=== PATIENT | female | born 1990 | race Caucasian/White ===

== ENCOUNTER 2017-08-18 23:51 | Emergency (ER) | payer BC ==
--- NOTE | 2017-08-19 00:16 | EDM.PDOC ---
ED HPI GENERAL MEDICAL PROBLEM - General Chief Complaint: General Stated Complaint: TOOTHACHE Time Seen by Provider: 08/19/17 00:11 - History of Present Illness INITIAL COMMENTS - FREE TEXT/NARRATIVE: HISTORY AND PHYSICAL: History of present illness: Patient's 26-year-old female who presents with a concern of dental pain she has a dental carry of her lower molar with a secondary fracture she is also . She denies any allergies denies fever chills nausea vomiting denies any signs or symptoms related to Review of systems: As per history of present illness and below otherwise all systems reviewed and negative. Past medical history: As per history of present illness and as reviewed below otherwise noncontributory. Surgical history: As per history of present illness and as reviewed below otherwise noncontributory. Social history: No reported history of drug or alcohol abuse. Family history: As per history of present illness and as reviewed below otherwise noncontributory. Physical exam: HEENT: Atraumatic, normocephalic, pupils reactive, negative for conjunctival pallor or scleral icterus, mucous membranes moist, throat clear, neck supple, nontender, trachea midline. Multiple dental caries left lower molar with secondary dental fracture small gingival edema Lungs: Clear to auscultation, breath sounds equal bilaterally, chest nontender. Heart: S1S2, regular, negative for clicks, rubs, or JVD. Abdomen: Soft, nondistended, nontender. Negative for masses or hepatosplenomegaly. Negative for costovertebral tenderness. Pelvis: Stable nontender. Genitourinary: Deferred. Rectal: Deferred. Extremities: Atraumatic, negative for cords or calf pain. Neurovascular unremarkable. Neuro: Awake, alert, oriented. Cranial nerves II through XII unremarkable. Cerebellum unremarkable. Motor and sensory unremarkable throughout. Exam nonfocal. Diagnostics: None Therapeutics: None Impression: #1 #2 dental carry with secondary fracture #3 rule out dental abscess Definitive disposition and diagnosis as appropriate pending reevaluation and review of above. - Related Data Allergies Allergy/AdvReac Type Severity Reaction Status Date / Time No Known Allergies Allergy Verified 05/03/17 14:28 Past Medical History Other OB/BYN History: pt current preg Social & Family History - Family History Family Medical History: Unobtainable ED ROS GENERAL - Review of Systems Review Of Systems: ROS reveals no pertinent complaints other than HPI. ED EXAM, GENERAL - Physical Exam Exam: See Below Departure - Departure Time of Disposition: 00:15 Disposition: Home, Self-Care 01 Condition: Good Clinical Impression: Dentalgia - Discharge Information Referrals: PCP,None [Primary Care Provider] - Additional Instructions: The following information is given to patients seen in the emergency department who are being discharged to home. This information is to outline your options for follow-up care. We provide all patients seen in our emergency department with a follow-up referral. The need for follow-up, as well as the timing and circumstances, are variable depending upon the specifics of your emergency department visit. If you don't have a primary care physician on staff, we will provide you with a referral. We always advise you to contact your personal physician following an emergency department visit to inform them of the circumstance of the visit and for follow-up with them and/or the need for any referrals to a consulting specialist. The emergency department will also refer you to a specialist when appropriate. This referral assures that you have the opportunity for followup care with a specialist. All of these measure are taken in an effort to provide you with optimal care, which includes your followup. Under all circumstances we always encourage you to contact your private physician who remains a resource for coordinating your care. When calling for followup care, please make the office aware that this follow-up is from your recent emergency room visit. If for any reason you are refused follow-up, please contact the [facility] emergency department at and asked to speak to the emergency department charge nurse. Geraldo Gutierrez as prescribed Tylenol as directed follow-up dentist as discussed return as needed as discussed
== END 2017-08-19 00:27 | disposition home or self-care (01) ==
LOC: MW.ED 23:51
DX: O99.619 Diseases of the digestive system complicating pregnancy, unspecified trimester (principal); K03.81 Cracked tooth; K02.9 Dental caries, unspecified
CPT/HCPCS: 99282

== ENCOUNTER 2017-09-20 17:17 | Observation (INO) | payer BC ==
[2017-09-20] MEDS ORDERED: Sodium Chloride 0.9% 2.5 ML Syringe FLUSH PRN (20:13)
[2017-09-20] MEDS ORDERED: Sodium Chloride 0.9% 10 ML Syringe FLUSH PRN (20:13)
[2017-09-20] MEDS ORDERED: Lactated Ringers 1,000 ML IV SCH (20:15)
--- NOTE | 2017-09-20 23:37 | HP ---
DATE OF : 1990 PRIMARY CARE PHYSICIAN: None PCP HISTORY OF PRESENT ILLNESS: This is a 26-year-old, G4, P1-0-2-1. She is at 35 and 5/7 weeks gestation. She called with complaints of 1 to 2 week onset of pelvic pressure, cramping, contractions. Four days ago, she had a vaginal examination, since that time, she has had some spotting. She also notes pressure. She notes it hurts to sit or walk. She denies any loss of fluid. She reports good movement. She does report low back pain. She was 1 cm in the clinic on Sunday. Her group B strep is currently pending. She has had care complicated by maternal PVCs, right mild pyelectasis, and mild tricuspid regurgitation, both have resolved. She is blood type B positive. She is rubella immune. She denies any abdominal trauma or other concern. She denies any vaginal discharge or odor besides the occasional spotting. REVIEW OF SYSTEMS: Negative for headache or visual changes, cough, shortness of breath, chest pain. No dermatologic changes. No hematologic changes. [facility] A Class and Urology history is per HPI. PHYSICAL EXAMINATION: VITAL SIGNS: Blood pressure is 119/83, pulse is 84, temperature is 97.6, respiratory rate of 16. heart tones are 130s, moderate variability, reactive accelerations present. Contractions are irregular. Occasionally every 2 to 3 minutes in clusters, and then every 5 to 10 minutes. GENERAL: She is alert and oriented. She appears in no acute distress. ABDOMEN: Soft, nontender. Fundus is nontender. EXTREMITIES: Trace edema. CERVIX: Vaginal exam was 1 cm, 70%, and -1 station. LABORATORY DATA: Laboratory studies showed normal platelet count. Ultrasound showed no evidence of placenta previa, normal amniotic fluid. Discussed with the radiologist to have discussion with the tech, who was concerned about a 1 cm hypoechoic area between the uterus and the placenta with no Doppler flow. The radiologist could not completely rule out abruption, therefore, he recommended repeating ultrasound in approximately 6 hours. Fibrinogen was normal for at a level of 550. ASSESSMENT AND PLAN: Pelvic pressure and spotting, rule out placental abruption. Laboratory studies are reassuring. heart tones are reassuring. We will proceed with IV fluids and await the followup ultrasound. If this is normal, she may be discharged. Cervical exam has been unchanged over several hours. She does have an appointment on 09/21/[address] Looney and we will keep this appointment if she is discharged. DARWIN BALDERAS /[id number]
--- NOTE | 2017-09-21 16:47 | US ---
EXAM DATE: 09/20/17 PATIENT'S AGE: 26 Patient: KRISTAL PLATA Facility: [place], [place] Site . Site : 1990 Study: US OB Pelvis [id number]/[id number] 2:00:26 AM Ordering Physician: Nora العراقي Final Report: LIMITED OB ULTRASOUND INDICATION: Re-evaluation of possible abruption. COMPARISON: 6:56 p.m. 09/20/2017 OB ultrasound. FINDINGS/IMPRESSION: Sonographic evaluation limited to the placenta was again performed. There has been no apparent change compared to the previous exam. The placenta is to the maternal right and again shows thin hypoechoic areas at the placenta-uterine interface within which there is a suggestion of color Doppler flow. This flow is synchronized with the patient`s respirations according to the technologist. This finding is favored to represent venous flow or artifact, although a small abruption is not entirely excluded. Followup sonographic evaluation in 1 week is recommended. Dictated by Bruce Sidhu MD @ 09/21/2017 2:31:13 AM Dictated by: Bruce Sidhu MD @ 09/21/2017 02:31:58 (Electronic Signature) Report Signed by Proxy. BRE
== END 2017-09-21 03:20 | disposition home or self-care (01) ==
LOC: MW.OBCHECK 17:17 → MW.OB 17:17 → MW.OBCHECK 18:11 → MW.OB 18:11
PROVIDERS: ADMIT Obstetrics & Gynecology; ATTEND Obstetrics & Gynecology
DX: O26.853 Spotting complicating pregnancy, third trimester (principal); Z3A.35 35 weeks gestation of pregnancy; O26.893 Other specified pregnancy related conditions, third trimester; R10.2 Pelvic and perineal pain
CPT/HCPCS: 36415; 59025; 76815; 81003; 85025; 85384; G0378; J7120

== ENCOUNTER 2017-09-30 10:20 | Inpatient (IN) | payer BC ==
[2017-09-30] MEDS ORDERED: Nalbuphine 10 MG/ML 10 ML MDV IVPUSH PRN (10:45)
[2017-09-30] MEDS ORDERED: Lidocaine 1% 50 ML MDV INJECT PRN (10:45)
[2017-09-30] MEDS ORDERED: Butorphanol 1 MG/ML SDV IVPUSH PRN (10:45)
[2017-09-30] MEDS ORDERED: Carboprost Tromethamine 250 MCG/1 ML Amp IM PRN (10:45)
[2017-09-30] MEDS ORDERED: Misoprostol 200 MCG Tab PO PRN (10:45)
[2017-09-30] MEDS ORDERED: Sodium Chloride 0.9% 10 ML Syringe FLUSH PRN (10:45)
[2017-09-30] MEDS ORDERED: Methylergonovine 0.2 MG/1 ML Amp IM PRN (10:45)
[2017-09-30] MEDS ORDERED: Sodium Chloride 0.9% 2.5 ML Syringe FLUSH PRN (10:45)
[2017-09-30] MEDS ORDERED: Oxytocin/0.9 % Sodium Chloride 30 UNIT/500 ML BAG IV SCH (10:45)
[2017-09-30] MEDS ORDERED: Lactated Ringers 1,000 ML IV SCH (10:45)
[2017-09-30] MEDS ORDERED: Tranexamic Acid 1,000 MG in Sodium Chloride 0.9% 100 ML IV PRN (10:45)
[2017-09-30] MEDS ORDERED: Water For Irrigation,Sterile 1,000 ML Container IRR PRN (10:45)
--- NOTE | 2017-09-30 11:18 | PCM.SN ---
- Free Text/Narrative Note: Called by nursing for epidural placement. On my arrival the patient is delivering.
[2017-09-30] MEDS ORDERED: Acetaminophen 500 MG Tab PO PRN ×2 (11:37)
[2017-09-30] MEDS ORDERED: Ibuprofen 400 MG Tab PO PRN (11:37)
[2017-09-30] MEDS ORDERED: Docusate Sodium 100 MG Cap PO PRN (11:37)
[2017-09-30] MEDS ORDERED: Witch Hazel Medicated Pads 40/Jar TOP PRN (11:37)
[2017-09-30] MEDS ORDERED: Aluminum Hydroxide/Magnesium Hydroxide/Simethicone Susp 30 ML Cup PO PRN (11:37)
[2017-09-30] MEDS ORDERED: Bisacodyl 10 MG Supp RECTAL PRN (11:37)
[2017-09-30] MEDS ORDERED: Benzocaine/Menthol 20%-0.5% Spray 78 GM Cannister TOP PRN (11:37)
[2017-09-30] MEDS ORDERED: Lanolin 100% Cream 7 GM Tube TOP PRN (11:37)
[2017-09-30] MEDS ORDERED: Ibuprofen 800 MG Tab PO PRN (11:37)
[2017-09-30] MEDS ORDERED: oxyCODONE 5 MG Tab PO PRN (11:37)
--- NOTE | 2017-10-01 06:33 | OR ---
SURGEON: Dulce Maria Melendez M.D. DATE OF PROCEDURE: PREOPERATIVE DIAGNOSES: 1. 37 and 1 week intrauterine . 2. Active labor. POSTOPERATIVE DIAGNOSES: 1. 37 and 1 week intrauterine . 2. Active labor. PROCEDURE: Spontaneous vaginal delivery. Intact perineum. ANESTHESIA: None. ESTIMATED BLOOD LOSS: 300 mL. FINDINGS: Viable female. score 8 at 1 minute, 9 at 5 minute. Weight 2630 g. Spontaneous delivery, intact placenta, 3-vessel cord. DISPOSITION: Infant to nursery, mom in LDRP, stable. PROCEDURE IN DETAIL: Jakub is a 26-year-old G4, P1-0-2-1, at 36 and 1 week gestational age, who presents on the morning of 09/30/2017 with regular contractions, became much more intense over the hour prior to presentation. Upon examination, was found to be 7 cm, 100% effaced, +1 station. The patient was admitted, routine labs drawn, IV hydration was initiated. The patient quickly progressed to complete with spontaneous rupture of membranes and feeling the urge to push. I was called for delivery. Upon my arrival, the fetus had just delivered. Next, the was just delivered. I was able to clamp the cord x2, cut, and was able to obtain cord blood gases and cord blood sampling. Light pressure was applied while the placenta was delivered spontaneously intact. Vigorous fundal uterine massage was then applied while 30 units of Pitocin was delivered in 500 mL of fluid upon inspection of cervix, vaginal sidewalls, and perineum, these found to be intact. The patient has tolerated the procedure well overall. Hemostasis appeared evident. Mom and infant are in LDRP with attending nursing staff at her side. The patient will remain in LDRP. Infant to nursery. JOANA / SHERRIE /[id number]
--- NOTE | 2017-10-01 08:10 | PCM.PNPP ---
<Allison José - Last Filed: 10/01/17 08:06> - General Info Date of Service: 10/01/17 Functional Status: Reports: Pain Controlled, Tolerating Diet, Ambulating, Urinating - Review of Systems General: Denies: Fever, Weakness, Fatigue Pulmonary: Denies: Shortness of Breath, Pleuritic Chest Pain, Cough Cardiovascular: Denies: Chest Pain, Palpitations, Dyspnea on Exertion Gastrointestinal: Denies: Abdominal Pain Genitourinary: Denies: Dysuria - General Info Date of Service: 10/01/17 - Patient Data Vital Signs - Most Recent: Last Vital Signs Temp 36.2 C 10/01/17 05:00 Pulse 70 10/01/17 05:00 Resp 15 10/01/17 05:00 BP 134/88 10/01/17 05:00 Pulse Ox 96 10/01/17 05:00 Weight - Most Recent: 176 lb Lab Results - Last 24 Hours: Laboratory Results - last 24 hr 09/30/17 09/30/17 09/30/17 Range/Units 10:53 10:53 11:16 WBC 11.64 H (4.0-11.0) K/uL RBC 4.02 L (4.30-5.90) M/uL Hgb 13.1 (12.0-16.0) g/dL Hct 37.3 (36.0-46.0) % MCV 92.8 (80.0-98.0) fL MCH 32.6 H (27.0-32.0) pg MCHC 35.1 (31.0-37.0) g/dL RDW Std Deviation 44.2 (28.0-62.0) fl RDW Coeff of Alta 13 (11.0-15.0) % Plt Count 254 (150-400) K/uL MPV 10.60 (7.40-12.00) fL Nucleated RBC % 0.0 /100WBC Nucleated RBCs # 0 K/uL Cord ABG pH 7.269 (7.18-7.38) Cord ABG Base Excess -2 (-10--2) Cord VBG pH 7.395 (7.25-7.45) Cord VBG Base Excess -5 (-10--2) Blood Type B POSITIVE Antibody Screen NEGATIVE 10/01/17 Range/Units 05:40 WBC (4.0-11.0) K/uL RBC (4.30-5.90) M/uL Hgb 11.8 L (12.0-16.0) g/dL Hct 34.9 L (36.0-46.0) % MCV (80.0-98.0) fL MCH (27.0-32.0) pg MCHC (31.0-37.0) g/dL RDW Std Deviation (28.0-62.0) fl RDW Coeff of Alta (11.0-15.0) % Plt Count (150-400) K/uL MPV (7.40-12.00) fL Nucleated RBC % /100WBC Nucleated RBCs # K/uL Cord ABG pH (7.18-7.38) Cord ABG Base Excess (-10--2) Cord VBG pH (7.25-7.45) Cord VBG Base Excess (-10--2) Blood Type Antibody Screen Med Orders - Current: Current Medications Acetaminophen (Tylenol Extra Strength) 500 mg PO Q4H PRN PRN Reason: Pain Acetaminophen (Tylenol Extra Strength) 1,000 mg PO Q4H PRN PRN Reason: Pain Al Hydroxide/Mg Hydroxide (Mag-Al Plus) 30 ml PO Q8H PRN PRN Reason: Heartburn Benzocaine/Menthol (Dermoplast Pain Relief 20%-0.5% Liberty) 78 gm TOP ASDIRECTED PRN PRN Reason: Perineal Comfort Measure Last Admin: 09/30/17 14:05 Dose: 78 gm Bisacodyl (Dulcolax) 10 mg RECTAL .ONCE PRN PRN Reason: Constipation Carboprost Tromethamine (Hemabate Ds) 250 mcg IM ASDIRECTED PRN PRN Reason: Post Hemorrhage Docusate Sodium (Colace) 100 mg PO BID PRN PRN Reason: Constipation Emollient Ointment (Lansinoh Hpa) 0 gm TOP ASDIRECTED PRN PRN Reason: Sore Nipples Lactated Ringer's (Ringers, Lactated) 1,000 mls @ 150 mls/hr IV ASDIRECTED MARÍA Last Admin: 09/30/17 11:01 Dose: 999 mls/hr Oxytocin/Sodium Chloride (Oxytocin 30 Unit/500 Ml-Ns) 30 unit in 500 mls @ 999 mls/hr IV TITRATE MARÍA Last Admin: 09/30/17 11:17 Dose: 999 mls/hr Tranexamic Acid 1,000 mg/ (Sodium Chloride) 110 mls @ 660 mls/hr IV ONETIME PRN PRN Reason: Bleeding Ibuprofen (Motrin) 400 mg PO Q4H PRN PRN Reason: Pain Ibuprofen (Motrin) 800 mg PO Q6H PRN PRN Reason: Pain Lidocaine HCl (Xylocaine 1%) 50 ml INJECT .ONCE PRN PRN Reason: Laceration repair Methylergonovine Maleate (Methergine) 0.2 mg IM ASDIRECTED PRN PRN Reason: Post Hemorrhage Oxycodone HCl (Oxycodone) 5 mg PO Q2H PRN PRN Reason: Pain Sodium Chloride (Saline Flush) 10 ml FLUSH ASDIRECTED PRN PRN Reason: Keep Vein Open Sodium Chloride (Saline Flush) 2.5 ml FLUSH ASDIRECTED PRN PRN Reason: Keep Vein Open Sterile Water (Sterile Water For Irrigation) 1,000 ml IRR ASDIRECTED PRN PRN Reason: delivery Last Admin: 09/30/17 11:37 Dose: 1,000 ml Witch Kizzy (Tucks) 1 pad TOP ASDIRECTED PRN PRN Reason: comfort care Discontinued Medications Butorphanol Tartrate (Stadol) 1 mg IVPUSH Q1H PRN PRN Reason: Pain Misoprostol (Cytotec) 200 mcg PO .ONCE PRN PRN Reason: Post Hemorrhage Nalbuphine HCl (Nubain) 10 mg IVPUSH Q1H PRN PRN Reason: Pain (severe 7-10) - Interaction Disposition, : [place] in Room with Family Infant Interaction: Holding Feeding: Breastfed ; Nursed Well Support Person: - Recovery Exam Fundal Tone: Firm Fundal Level: At Umbilicus Fundal Placement: Midline Lochia Amount: Scant Lochia Color: Rubra/Red Perineum Description: Intact, Minimal Bruising/Swelling Episiotomy/Laceration: None Bladder Status: Voiding Urinary Elimination: Voided - Exam General: Alert, Oriented Neck: Supple Lungs: Clear to Auscultation, Normal Respiratory Effort Cardiovascular: Regular Rate, Regular Rhythm GI/Abdominal Exam: Normal Bowel Sounds, Soft, No Distention, No Mass Extremities: Normal Inspection, Normal Capillary Refill, Pedal Edema (trace) Skin: Warm, Dry, Intact - Problem List Review Problem List Initiated/Reviewed/Updated: Yes - Assessment Assessment:: PPD #1 s/p . Minimal pain and lochia. Breast feeding well. Discharge home today. - Plan Plan:: Discharge instructions reviewed. Pelvic rest for 6 weeks. Can use OTC ibuprofen/ tylenol as needed for pain. Instructed patient to call if she develops fever greater than 101 or bleeding through a large pad an hour. F/U with [facility] in 6 weeks <Janiya Looney - Last Filed: 10/01/17 09:10> - Patient Data Vital Signs - Most Recent: Last Vital Signs Temp 36.2 C 10/01/17 05:00 Pulse 70 10/01/17 05:00 Resp 15 10/01/17 05:00 BP 134/88 10/01/17 05:00 Pulse Ox 96 10/01/17 05:00 Lab Results - Last 24 Hours: Laboratory Results - last 24 hr 09/30/17 09/30/17 09/30/17 Range/Units 10:53 10:53 11:16 WBC 11.64 H (4.0-11.0) K/uL RBC 4.02 L (4.30-5.90) M/uL Hgb 13.1 (12.0-16.0) g/dL Hct 37.3 (36.0-46.0) % MCV 92.8 (80.0-98.0) fL MCH 32.6 H (27.0-32.0) pg MCHC 35.1 (31.0-37.0) g/dL RDW Std Deviation 44.2 (28.0-62.0) fl RDW Coeff of Alta 13 (11.0-15.0) % Plt Count 254 (150-400) K/uL MPV 10.60 (7.40-12.00) fL Nucleated RBC % 0.0 /100WBC Nucleated RBCs # 0 K/uL Cord ABG pH 7.269 (7.18-7.38) Cord ABG Base Excess -2 (-10--2) Cord VBG pH 7.395 (7.25-7.45) Cord VBG Base Excess -5 (-10--2) Blood Type B POSITIVE Antibody Screen NEGATIVE 10/01/17 Range/Units 05:40 WBC (4.0-11.0) K/uL RBC (4.30-5.90) M/uL Hgb 11.8 L (12.0-16.0) g/dL Hct 34.9 L (36.0-46.0) % MCV (80.0-98.0) fL MCH (27.0-32.0) pg MCHC (31.0-37.0) g/dL RDW Std Deviation (28.0-62.0) fl RDW Coeff of Alta (11.0-15.0) % Plt Count (150-400) K/uL MPV (7.40-12.00) fL Nucleated RBC % /100WBC Nucleated RBCs # K/uL Cord ABG pH (7.18-7.38) Cord ABG Base Excess (-10--2) Cord VBG pH (7.25-7.45) Cord VBG Base Excess (-10--2) Blood Type Antibody Screen Med Orders - Current: Current Medications Acetaminophen (Tylenol Extra Strength) 500 mg PO Q4H PRN PRN Reason: Pain Acetaminophen (Tylenol Extra Strength) 1,000 mg PO Q4H PRN PRN Reason: Pain Al Hydroxide/Mg Hydroxide (Mag-Al Plus) 30 ml PO Q8H PRN PRN Reason: Heartburn Benzocaine/Menthol (Dermoplast Pain Relief 20%-0.5% Liberty) 78 gm TOP ASDIRECTED PRN PRN Reason: Perineal Comfort Measure Last Admin: 09/30/17 14:05 Dose: 78 gm Bisacodyl (Dulcolax) 10 mg RECTAL .ONCE PRN PRN Reason: Constipation Carboprost Tromethamine (Hemabate Ds) 250 mcg IM ASDIRECTED PRN PRN Reason: Post Hemorrhage Docusate Sodium (Colace) 100 mg PO BID PRN PRN Reason: Constipation Emollient Ointment (Lansinoh Hpa) 0 gm TOP ASDIRECTED PRN PRN Reason: Sore Nipples Lactated Ringer's (Ringers, Lactated) 1,000 mls @ 150 mls/hr IV ASDIRECTED MARÍA Last Admin: 09/30/17 11:01 Dose: 999 mls/hr Oxytocin/Sodium Chloride (Oxytocin 30 Unit/500 Ml-Ns) 30 unit in 500 mls @ 999 mls/hr IV TITRATE MARÍA Last Admin: 09/30/17 11:17 Dose: 999 mls/hr Tranexamic Acid 1,000 mg/ (Sodium Chloride) 110 mls @ 660 mls/hr IV ONETIME PRN PRN Reason: Bleeding Ibuprofen (Motrin) 400 mg PO Q4H PRN PRN Reason: Pain Ibuprofen (Motrin) 800 mg PO Q6H PRN PRN Reason: Pain Lidocaine HCl (Xylocaine 1%) 50 ml INJECT .ONCE PRN PRN Reason: Laceration repair Methylergonovine Maleate (Methergine) 0.2 mg IM ASDIRECTED PRN PRN Reason: Post Hemorrhage Oxycodone HCl (Oxycodone) 5 mg PO Q2H PRN PRN Reason: Pain Sodium Chloride (Saline Flush) 10 ml FLUSH ASDIRECTED PRN PRN Reason: Keep Vein Open Sodium Chloride (Saline Flush) 2.5 ml FLUSH ASDIRECTED PRN PRN Reason: Keep Vein Open Sterile Water (Sterile Water For Irrigation) 1,000 ml IRR ASDIRECTED PRN PRN Reason: delivery Last Admin: 09/30/17 11:37 Dose: 1,000 ml Witch Kizzy (Tucks) 1 pad TOP ASDIRECTED PRN PRN Reason: comfort care Discontinued Medications Butorphanol Tartrate (Stadol) 1 mg IVPUSH Q1H PRN PRN Reason: Pain Misoprostol (Cytotec) 200 mcg PO .ONCE PRN PRN Reason: Post Hemorrhage Nalbuphine HCl (Nubain) 10 mg IVPUSH Q1H PRN PRN Reason: Pain (severe 7-10) - Assessment Assessment:: Patient evaluated independently and agree above - Plan Plan:: Will discharge home today
== END 2017-10-01 14:35 | disposition home or self-care (01) | DRG 560 ==
LOC: MW.OBCHECK 10:20 → MW.OB 10:21 → OBSVTOIN 11:16 → MW.OB 13:00
PROVIDERS: ADMIT Obstetrics & Gynecology; ATTEND Obstetrics & Gynecology
PROC: 10E0XZZ Delivery of Products of Conception, External Approach (ICD-10-PCS; principal; 2017-09-30)
DX: O62.3 Precipitate labor (principal); Z3A.37 37 weeks gestation of pregnancy; Z37.0 Single live birth
CPT/HCPCS: 36415; 59025; 59409; 82803; 85014; 85018; 85027; 86850; 86900; 86901; A9270-GY; J2590; J7120

== ENCOUNTER 2020-02-02 19:18 | Emergency (ER) | payer BC ==
[2020-02-02] MEDS ORDERED: Sodium Chloride 0.9% 10 ML Syringe FLUSH PRN (19:29)
[2020-02-02] MEDS ORDERED: Sodium Chloride 0.9% 2.5 ML Syringe FLUSH PRN (19:29)
[2020-02-02] MEDS ORDERED: Lactated Ringers 1,000 ML IV ONE (19:29)
--- NOTE | 2020-02-02 19:35 | EDM.PDOC ---
ED HPI GENERAL MEDICAL PROBLEM - General Chief Complaint: Cardiovascular Problem Stated Complaint: HIGH HEART PRESSURE Time Seen by Provider: 02/02/20 19:25 Source of Information: Reports: Patient History Limitations: Reports: No Limitations - History of Present Illness INITIAL COMMENTS - FREE TEXT/NARRATIVE: 29-year-old female with history of PVC presents with left proximal arm discomfort 20 minutes prior to arrival, followed by heart racing and palpitation, she checked her heart rate and it was in the 170s. Associated with shortness of breath and nausea. She had a Zio patch Holter monitor placed on Sunday for 2 weeks. Patient denies fever, chills, headache, chest pain, shortness of breath, abdominal pain, focal numbness or weakness. ROS: A 10-point review of systems, other than pertinent positives and negatives as stated per HPI, is otherwise negative Past medical history: No additional pertinent history Past Surgical history: No additional pertinent history Social history: No additional pertinent history Family history: No additional pertinent history PHYSICAL EXAM General: AOx4, GCS = 15, No distress HEENT: dry mucous membrane Neck: supple, no meningismus, no Kernig or Brudzinski Cardiac: S1S2 tachycardia Respiratory: CTAB, no crackles or rales, no wheezing Abdomen: Soft, nontender, no rebound or guarding, nondistended, no pulsatile mass. Back: nontender Musculoskeletal: NVI distally, no deformity, no tenderness or swelling to the left humerus. Neuro: No focal deficits, CN 2 - 12 WNL. - Related Data Allergies Allergy/AdvReac Type Severity Reaction Status Date / Time No Known Allergies Allergy Verified 02/02/20 19:26 Home Meds: Home Meds . [No Known Home Meds] 02/02/20 [History] Past Medical History Cardiovascular History: Reports: Arrhythmia PATIENT CARE History: Reports: , Spontaneous Other PATIENT CARE History: pt current preg - Past Surgical History HEENT Surgical History: Reports: None Cardiovascular Surgical History: Reports: None Social & Family History - Family History Family Medical History: Unobtainable - Caffeine Use Caffeine Use: Reports: Soda ED ROS GENERAL - Review of Systems Review Of Systems: See Below (see dictation) ED EXAM, GENERAL - Physical Exam Exam: See Below (see dictation) #1 Interpretation EKG Interpretation Comments: Heart rate = 119 bpm, sinus tachycardia, QTc 435ms, SC 123ms, QRS 72ms, normal QRS interval, no STEMI. EKG and rhythm strip interpreted by me at 1926 #2 Interpretation EKG Interpretation Comments: Heart rate = 96 bpm, normal sinus rhythm, normal QRS interval, no STEMI. EKG and rhythm strip interpreted by me at 0854 Course - Vital Signs Last Recorded V/S: Last Vital Signs Temp 97.5 F 02/02/20 19:23 Pulse 146 H 02/02/20 19:23 Resp 20 02/02/20 19:23 BP 138/89 02/02/20 19:23 Pulse Ox 100 02/02/20 19:23 - Orders/Labs/Meds Orders: Active Orders 24 hr Category Date Time Status Cardiac Monitoring [RC] . DIRECTED Care 02/02/20 19:29 Active EKG Documentation Completion [RC] STAT Care 02/02/20 19:29 Active Pulse Oximetry [RC] ASDIRECTED Care 02/02/20 19:29 Active Sodium Chloride 0.9% [Saline Flush] Med 02/02/20 19:29 Active 10 ml FLUSH ASDIRECTED PRN Sodium Chloride 0.9% [Saline Flush] Med 02/02/20 19:29 Active 2.5 ml FLUSH ASDIRECTED PRN Saline Lock Insert [OM.PC] Stat Oth 02/02/20 19:29 Ordered Medication Orders Sodium Chloride (Saline Flush) 10 ml FLUSH ASDIRECTED PRN PRN Reason: Keep Vein Open Sodium Chloride (Saline Flush) 2.5 ml FLUSH ASDIRECTED PRN PRN Reason: Keep Vein Open Labs: Laboratory Tests 02/02/20 02/02/20 Range/Units 19:26 19:26 WBC 9.77 (4.0-11.0) K/uL RBC 4.52 (4.30-5.90) M/uL Hgb 14.7 (12.0-16.0) g/dL Hct 42.0 (36.0-46.0) % MCV 92.9 (80.0-98.0) fL MCH 32.5 H (27.0-32.0) pg MCHC 35.0 (31.0-37.0) g/dL RDW Std Deviation 41.8 (28.0-62.0) fl RDW Coeff of [place]ta 12 (11.0-15.0) % Plt Count 320 (150-400) K/uL MPV 9.50 (7.40-12.00) fL Neut % (Auto) 53.2 (48.0-80.0) % Lymph % (Auto) 39.8 (16.0-40.0) % [place] % (Auto) 5.6 (0.0-15.0) % Eos % (Auto) 1.0 (0.0-7.0) % Baso % (Auto) 0.4 (0.0-1.5) % Neut # (Auto) 5.2 (1.4-5.7) K/uL Lymph # (Auto) 3.9 H (0.6-2.4) K/uL [place] # (Auto) 0.6 (0.0-0.8) K/uL Eos # (Auto) 0.1 (0.0-0.7) K/uL Baso # (Auto) 0.0 (0.0-0.1) K/uL Nucleated RBC % 0.0 /100WBC Nucleated RBCs # 0 K/uL Sodium 139 (136-145) mmol/L Potassium 3.3 L (3.5-5.1) mmol/L Chloride 101 (98-107) mmol/L Carbon Dioxide 26.1 (21.0-32.0) mmol/L BUN 13 (7.0-18.0) mg/dL Creatinine 0.9 (0.6-1.0) mg/dL Est Cr Clr Drug Dosing 87.12 mL/min Estimated GFR (MDRD) > 60.0 ml/min Glucose 95 (74-106) mg/dL Calcium 9.1 (8.5-10.1) mg/dL Magnesium 2.1 (1.8-2.4) mg/dL Total Bilirubin 0.4 (0.2-1.0) mg/dL AST 18 (15-37) IU/L ALT 20 (14-63) IU/L Alkaline Phosphatase 72 (46-116) U/L Troponin I < 0.050 (0.000-0.056) ng/mL Total Protein 8.1 (6.4-8.2) g/dL Albumin 4.4 (3.4-5.0) g/dL Globulin 3.7 (2.6-4.0) g/dL Albumin/Globulin Ratio 1.2 (0.9-1.6) TSH 3rd Generation 3.51 (0.36-3.74) uIU/mL Meds: Medications Generic Name Dose Route Start Last Admin Trade Name Freq PRN Reason Stop Dose Admin Sodium Chloride 10 ml 02/02/20 19:29 Saline Flush FLUSH ASDIRECTED PRN Keep Vein Open Sodium Chloride 2.5 ml 02/02/20 19:29 Saline Flush FLUSH ASDIRECTED PRN Keep Vein Open Discontinued Medications Generic Name Dose Route Start Last Admin Trade Name Freq PRN Reason Stop Dose Admin Lactated Ringer's 1,000 mls @ 999 mls/hr 02/02/20 19:29 02/02/20 19:55 Ringers, Lactated IV 02/02/20 20:29 999 mls/hr .BOLUS ONE Administration Potassium Chloride 20 meq 02/02/20 20:43 Klor-Con M20 PO 02/02/20 20:44 ONETIME ONE - Re-Assessments/Exams Free Text/Narrative Re-Assessment/Exam: 02/02/20 2100 After replating her potassium, and prolonged observation in the ER, she improved and is currently stable for discharge. I performed a repeat exam and did not appreciate new abnormal findings. Patient exhibits normal vital signs and has a normal gait on road test. I advised the patient to return to the ER for reevaluation if symptoms worsened, including fever, worsening pain, or any other worrisome symptoms. I instructed the patient to follow up with Dr. Vaca within 2-3 days. MEDICAL DECISION MAKING: I reviewed the patients past medical records, lab and radiographic findings. I discussed the case with the patient. My differential diagnosis included: Electrolyte abnormality, PVC, tachyarrhythmia. Her potassium = 3.3, repleted with p.o. KCl 40 mEq. No PVCs noted on the EKG despite occasionally seeing it on the political cartoonist. Her tachycardia resolved. 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 If you don't have a primary care physician on staff, we will provide you with a referral. We always advise you to contact your personal physician following an emergency department visit to inform them of the circumstance of the visit and for follow-up with them and/or the need for any referrals to a consulting specialist. The emergency department will also refer you to a specialist when appropriate. This referral assures that you have the opportunity for follow-up care with a specialist. All of these measure are taken in an effort to provide you with optimal care, which includes your follow-up. Under all circumstances we always encourage you to contact your private physician who remains a resource for coordinating your care. When calling for follow-up care, please make the office aware that this follow-up is from your recent emergency room visit. If for any reason you are refused follow-up, please contact the [facility] Emergency Department at and asked to speak to the emergency department charge nurse. If you do not have a primary care doctor, please follow up with the clinics below within 3-5 days. [facility] - Primary [facility] [address] [place] [id number] [address] [place] [address] Sepsis Event Note (ED) - Evaluation Sepsis Screening Result: No Definite Risk - Focused Exam Vital Signs: Vital Signs Temp Pulse Resp BP Pulse Ox 02/02/20 19:23 97.5 F 146 H 20 138/89 100 - My Orders Last 24 Hours: My Active Orders 02/02/20 19:29 Cardiac Monitoring [RC] . DIRECTED EKG Documentation Completion [RC] STAT Pulse Oximetry [RC] ASDIRECTED Sodium Chloride 0.9% [Saline Flush] 10 ml FLUSH ASDIRECTED PRN Sodium Chloride 0.9% [Saline Flush] 2.5 ml FLUSH ASDIRECTED PRN Saline Lock Insert [OM.PC] Stat - Assessment/Plan Last 24 Hours: My Active Orders 02/02/20 19:29 Cardiac Monitoring [RC] . DIRECTED EKG Documentation Completion [RC] STAT Pulse Oximetry [RC] ASDIRECTED Sodium Chloride 0.9% [Saline Flush] 10 ml FLUSH ASDIRECTED PRN Sodium Chloride 0.9% [Saline Flush] 2.5 ml FLUSH ASDIRECTED PRN Saline Lock Insert [OM.PC] Stat
[2020-02-02 20:05] LABS: BLOOD UREA NITROGEN,BUN 13 mg/dL (7.0-18.0); CARBON DIOXIDE,CO2 26.1 mmol/L (21.0-32.0); CHLORIDE,CL 101 mmol/L (98-107); GLUCOSE RANDOM 95 mg/dL (74-106); POTASSIUM,K 3.3 mmol/L (3.5-5.1); SODIUM,NA 139 mmol/L (136-145)
--- NOTE | 2020-02-02 20:34 | CR ---
Indication: Chest discomfort. Technique: AP portable view of the chest. Comparison: None Findings: The heart is normal in size. The lungs are clear. No infiltrate, pleural effusion, or pneumothorax is identified. Impression: No acute cardiopulmonary process. Dictated by Lenore Cisneros MD @ Feb 02 2020 8:31PM Signed by Dr. Lenore Cisneros @ Feb 02 2020 8:32PM
[2020-02-02] MEDS ORDERED: Potassium Chloride 20 MEQ Tab.ER PO ONE (20:43)
== END 2020-02-02 21:40 | disposition home or self-care (01) ==
LOC: MW.ED 19:18
DX: E87.6 Hypokalemia (principal)
CPT/HCPCS: 36415; 71045; 80053; 83735; 84443; 84484; 85025; 93005; 99285; A9270; J7120; 93010

== ENCOUNTER 2020-02-17 14:04 | Observation (INO) | payer BC ==
[2020-02-17] MEDS ORDERED: Sodium Chloride 0.9% 10 ML Syringe FLUSH PRN (14:13)
[2020-02-17] MEDS ORDERED: Sodium Chloride 0.9% 2.5 ML Syringe FLUSH PRN ×2 (14:13→17:06)
--- NOTE | 2020-02-17 14:17 | EDM.PDOC ---
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 She had a Zio patch Holter monitor placed recently and has a follow up appointment with Dr. Vaca. Patient denies fever, chills, headache, chest pain, shortness of breath, abdominal pain, focal numbness or weakness. ROS: A 10-point review of systems, other than pertinent positives and negatives as stated per HPI, is otherwise negative Past medical history: No additional pertinent history Past Surgical history: No additional pertinent history Social history: No additional pertinent history Family history: No additional pertinent history PHYSICAL EXAM General: AOx4, GCS = 15, No distress HEENT: dry mucous membrane Neck: supple, no meningismus, no Kernig or Brudzinski Cardiac: S1S2 tachycardia Respiratory: CTAB, no crackles or rales, no wheezing Abdomen: Soft, nontender, no rebound or guarding, nondistended, no pulsatile mass. Back: nontender Musculoskeletal: NVI distally, no deformity Neuro: No focal deficits, CN 2 - 12 WNL. - Related Data Allergies Allergy/AdvReac Type Severity Reaction Status Date / Time No Known Allergies Allergy Verified 02/02/20 19:26 Home Meds: Home Meds . [No Known Home Meds] 02/02/20 [History] Past Medical History Cardiovascular History: Reports: Arrhythmia, Other (See Below) Other Cardiovascular History: states pvc's , has zio patch on since 01/29 [employer]ACHINE History: Reports: , Spontaneous Other [employer] History: pt current preg - Past Surgical History HEENT Surgical History: Reports: None Cardiovascular Surgical History: Reports: None Social & Family History - Family History Family Medical History: No Pertinent Family History - Caffeine Use Caffeine Use: Reports: Soda ED ROS GENERAL - Review of Systems Review Of Systems: See Below (see dictation) ED EXAM, GENERAL - Physical Exam Exam: See Below (see dictation) #1 Interpretation EKG Interpretation Comments: Heart rate = 132 bpm, normal sinus rhythm, multiple PVC, normal QRS interval, no STEMI. EKG and rhythm strip interpreted by me at 1409 #2 Interpretation EKG Interpretation Comments: Heart rate = 103 bpm, sinus tachycardia, normal QRS interval, no STEMI. EKG and rhythm strip interpreted by me at 1444 Course - Vital Signs Last Recorded V/S: Last Vital Signs Temp 96.3 F L 02/17/20 14:15 Pulse 109 H 02/17/20 14:15 Resp 18 02/17/20 14:15 BP 130/84 02/17/20 14:15 Pulse Ox 99 02/17/20 14:15 - Orders/Labs/Meds Orders: Active Orders 24 hr Category Date Time Status Cardiac Monitoring [RC] . DIRECTED Care 02/17/20 14:13 Active EKG Documentation Completion [RC] STAT Care 02/17/20 14:13 Active Pulse Oximetry [RC] ASDIRECTED Care 02/17/20 14:13 Active Echo Comp wo Cont [US] Urgent Exams 02/17/20 15:47 Ordered CORONAVIRUS COVID-19 YUSUF [MOLEC] Stat Lab 02/17/20 14:57 Ordered Sodium Chloride 0.9% [Saline Flush] Med 02/17/20 14:13 Active 10 ml FLUSH ASDIRECTED PRN Sodium Chloride 0.9% [Saline Flush] Med 02/17/20 14:13 Active 2.5 ml FLUSH ASDIRECTED PRN Saline Lock Insert [OM.PC] Stat Oth 02/17/20 14:13 Ordered Medication Orders Sodium Chloride (Saline Flush) 10 ml FLUSH ASDIRECTED PRN PRN Reason: Keep Vein Open Sodium Chloride (Saline Flush) 2.5 ml FLUSH ASDIRECTED PRN PRN Reason: Keep Vein Open Labs: Laboratory Tests 02/17/20 02/17/20 02/17/20 Range/Units 14:11 14:11 14:11 WBC 7.16 (4.0-11.0) K/uL RBC 4.15 L (4.30-5.90) M/uL Hgb 13.5 (12.0-16.0) g/dL Hct 39.5 (36.0-46.0) % MCV 95.2 (80.0-98.0) fL MCH 32.5 H (27.0-32.0) pg MCHC 34.2 (31.0-37.0) g/dL RDW Std Deviation 42.4 (28.0-62.0) fl RDW Coeff of [place]ta 12 (11.0-15.0) % Plt Count 271 (150-400) K/uL MPV 9.20 (7.40-12.00) fL Neut % (Auto) 51.8 (48.0-80.0) % Lymph % (Auto) 39.5 (16.0-40.0) % [place] % (Auto) 7.4 (0.0-15.0) % Eos % (Auto) 1.0 (0.0-7.0) % Baso % (Auto) 0.3 (0.0-1.5) % Neut # (Auto) 3.7 (1.4-5.7) K/uL Lymph # (Auto) 2.8 H (0.6-2.4) K/uL [place] # (Auto) 0.5 (0.0-0.8) K/uL Eos # (Auto) 0.1 (0.0-0.7) K/uL Baso # (Auto) 0.0 (0.0-0.1) K/uL Nucleated RBC % 0.0 /100WBC Nucleated RBCs # 0 K/uL INR 1.05 Sodium 138 (136-145) mmol/L Potassium 3.5 (3.5-5.1) mmol/L Chloride 103 (98-107) mmol/L Carbon Dioxide 25.6 (21.0-32.0) mmol/L BUN 13 (7.0-18.0) mg/dL Creatinine 0.8 (0.6-1.0) mg/dL Est Cr Clr Drug Dosing 101.81 mL/min Estimated GFR (MDRD) > 60.0 ml/min Glucose 91 (74-106) mg/dL Calcium 9.3 (8.5-10.1) mg/dL Magnesium 2.1 (1.8-2.4) mg/dL Total Bilirubin 0.6 (0.2-1.0) mg/dL AST 16 (15-37) IU/L ALT 21 (14-63) IU/L Alkaline Phosphatase 66 (46-116) U/L Troponin I < 0.050 (0.000-0.056) ng/mL Total Protein 7.8 (6.4-8.2) g/dL Albumin 4.4 (3.4-5.0) g/dL Globulin 3.4 (2.6-4.0) g/dL Albumin/Globulin Ratio 1.3 (0.9-1.6) Meds: Medications Generic Name Dose Route Start Last Admin Trade Name Freq PRN Reason Stop Dose Admin Sodium Chloride 10 ml 02/17/20 14:13 Saline Flush FLUSH ASDIRECTED PRN Keep Vein Open Sodium Chloride 2.5 ml 02/17/20 14:13 Saline Flush FLUSH ASDIRECTED PRN Keep Vein Open - Re-Assessments/Exams Free Text/Narrative Re-Assessment/Exam: 02/17/20 14:[address] Vaca, he looked up the Zio Patch information, it hasn't been uploaded yet. He recommends admission for observation if she feels symptomatic. 02/17/20 15:[address] Bee, who agrees to admit patient. The hospitalist's documentation supersedes all other documentation on this patient with regard to any conflicts or discrepancies from this point forward. Any emergency conditions have been treated to the ability of the ED prior to admission. Departure - Departure Time of Disposition: 15:56 Disposition: Refer to Observation Condition: Good Clinical Impression: Tachycardia, PVCs (premature ventricular contractions) Referrals: PCP,None [Primary Care Provider] - Forms: ED Department Discharge Sepsis Event Note (ED) - Focused Exam Vital Signs: Vital Signs Temp Pulse Resp BP Pulse Ox 02/17/20 14:15 96.3 F L 109 H 18 130/84 99 - My Orders Last 24 Hours: My Active Orders 02/17/20 14:13 Cardiac Monitoring [RC] . DIRECTED EKG Documentation Completion [RC] STAT Pulse Oximetry [RC] ASDIRECTED Sodium Chloride 0.9% [Saline Flush] 10 ml FLUSH ASDIRECTED PRN Sodium Chloride 0.9% [Saline Flush] 2.5 ml FLUSH ASDIRECTED PRN Saline Lock Insert [OM.PC] Stat 02/17/20 14:57 CORONAVIRUS COVID-19 YUSUF [MOLEC] Stat - Assessment/Plan Last 24 Hours: My Active Orders 02/17/20 14:13 Cardiac Monitoring [RC] . DIRECTED EKG Documentation Completion [RC] STAT Pulse Oximetry [RC] ASDIRECTED Sodium Chloride 0.9% [Saline Flush] 10 ml FLUSH ASDIRECTED PRN Sodium Chloride 0.9% [Saline Flush] 2.5 ml FLUSH ASDIRECTED PRN Saline Lock Insert [OM.PC] Stat 02/17/20 14:57 CORONAVIRUS COVID-19 YUSUF [MOLEC] Stat
[2020-02-17 14:52] LABS: BLOOD UREA NITROGEN,BUN 13 mg/dL (7.0-18.0); CARBON DIOXIDE,CO2 25.6 mmol/L (21.0-32.0); CHLORIDE,CL 103 mmol/L (98-107); GLUCOSE RANDOM 91 mg/dL (74-106); POTASSIUM,K 3.5 mmol/L (3.5-5.1); SODIUM,NA 138 mmol/L (136-145)
--- NOTE | 2020-02-17 15:18 | CR ---
INDICATION: CHEST PAIN TECHNIQUE: Chest 1 view. COMPARISON: 02/02/20 FINDINGS: Cardiovascular and mediastinum: Heart size and vasculature are normal in caliber and appearance. Mediastinum is within normal limits. Lungs and pleural space: Lungs are clear. No sign of infiltrate or mass. No sign of pleural effusion. No pneumothorax. Bones and soft tissues: No significant findings. IMPRESSION: Unremarkable chest. Dictated by: Stoney Prather MD @ 02/17/2020 15:17:22 (Electronically Signed)
[2020-02-17] MEDS ORDERED: Potassium Chloride 20 MEQ Tab.ER PO ONE (16:48)
--- NOTE | 2020-02-17 17:04 | PCM.HP.2 ---
H&P History of Present Illness - General Date of Service: 02/17/20 Admit Problem/Dx: Admission Diagnosis/Problem Admission Diagnosis/Problem Tachyarrhythmia Source of Information: Patient History Limitations: Reports: No Limitations - History of Present Illness Initial Comments - Free Text/Narative: This 29-year-old female with past medical history of PVCs presented to the ER today at her nursing clinicals with complaints of chest pain left arm tingling and palpitations. She reports that her certified nursing attendant checked her pulse and it recorded at a rate of 160. She came to the ER to be evaluated. She was seen in the ER approximately 2 weeks ago for similar symptoms at the time she was wearing a Zio patch that was placed to further evaluate these palpitations. She reports a few years ago she was seen and evaluated by Dr. Garcia, cardiology for same symptoms at that time they did consider starting a beta- kina but decided not to. She reports that the last couple months the symptoms have significantly worsened and is quite concerned as she has signi ficant family medical history with heart disease. She denies any alcohol use no tobacco use and no recreational drug use she reports using CBD Gummies which have no THC intermittently for insomnia. She recently stopped all caffeine use approximately 2 weeks ago and has seen no improvement in palpitations. In the ER lab work essentially normal potassium 3.5 magnesium 2.1 TSH on 02/01 was 3.5. Troponin today was negative chest x-ray negative initial EKG showed bigeminy PVCs with a heart rate of 132, no ST elevation or ischemic changes. She converted naturally without any medications. Repeat EKG showed sinus tachycardia with rate 109. During my assessment she was noted to continue to have PVCs on the monitor as well as via auscultation. She will be admitted observation for palpitations and chest pain ACS rule out. Dr. chappell, ED physician reviewed EKG with Dr. Garcia he recommended admission for further evaluation and beta-kina administration. PCP Marah Beverly - Related Data Allergies/Adverse Reactions: Allergies Allergy/AdvReac Type Severity Reaction Status Date / Time No Known Allergies Allergy Verified 02/17/20 17:47 Home Medications: Home Meds . 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 Other OB/BYN History: pt current preg - Infectious Disease History Infectious Disease History: Reports: None - Past Surgical History HEENT Surgical History: Reports: None Cardiovascular Surgical History: Reports: None Social & Family History - Family History Family Medical History: No Pertinent Family History - Tobacco Use Tobacco Use Status *Q: Never Tobacco User - Caffeine Use Caffeine Use: Reports: None Other Caffeine Use: denies other stimulant or energy drink use - Alcohol Use Alcohol Use History: No Alcohol Use Frequency: Rarely - Recreational Drug Use Recreational Drug Use: No - Living Situation & Occupation Living situation: Reports: (with two children) 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 Denies: Fever, Chills, Malaise HEENT: Reports: No Symptoms. Denies: Headaches, Sinus Congestion, Visual Changes Pulmonary: Reports: No Symptoms. Denies: Shortness of Breath, Pleuritic Chest Pain, Cough, Sputum Cardiovascular: Reports: Chest Pain (substernal radiation to L arm with tingling) Gastrointestinal: Reports: No Symptoms. Denies: Abdominal Pain, Black Stool, Bloody Stool, Nausea, Vomiting Genitourinary: Reports: No Symptoms. Denies: Dysuria, Frequency Musculoskeletal: Reports: No Symptoms Skin: Reports: No Symptoms Psychiatric: Reports: No Symptoms Neurological: Reports: No Symptoms Hematologic/Lymphatic: Reports: No Symptoms Immunologic: Reports: No Symptoms Exam - Exam Exam: See Below - Vital Signs Vital Signs: Last Vital Signs Temp 96.3 F L 02/17/20 14:15 Pulse 109 H 02/17/20 14:15 Resp 18 02/17/20 14:15 BP 130/84 02/17/20 14:15 Pulse Ox 99 02/17/20 14:15 Weight: 70.307 kg - Exam Quality Assessment: Supplemental Oxygen General: Alert, Oriented, Cooperative HEENT: Conjunctiva Clear, Mucosa Moist & [place] Neck: Supple, Trachea Midline Lungs: Clear to Auscultation, Normal Respiratory Effort Cardiovascular: Regular Rate, Irregular Rhythm. No: Systolic Murmur GI/Abdominal Exam: Normal Bowel Sounds, Soft, Non-Tender, No Distention Back Exam: Normal Inspection, Full Range of Motion Extremities: Normal Inspection, Normal Range of Motion, Non-Tender, No Pedal Edema, Normal Capillary Refill Neuro Extensive - Mental Status: Alert, Oriented x3 Neuro Extensive - Motor, Sensory, Reflexes: CN II-XII Intact Psychiatric: Alert, Normal Affect, Normal Mood - Patient Data Lab Results Last 24 hrs: Laboratory Results - last 24 hr 02/17/20 02/17/20 02/17/20 Range/Units 14:11 14:11 14:11 WBC 7.16 (4.0-11.0) K/uL RBC 4.15 L (4.30-5.90) M/uL Hgb 13.5 (12.0-16.0) g/dL Hct 39.5 (36.0-46.0) % MCV 95.2 (80.0-98.0) fL MCH 32.5 H (27.0-32.0) pg MCHC 34.2 (31.0-37.0) g/dL RDW Std Deviation 42.4 (28.0-62.0) fl RDW Coeff of [place] 12 (11.0-15.0) % Plt Count 271 (150-400) K/uL MPV 9.20 (7.40-12.00) fL Neut % (Auto) 51.8 (48.0-80.0) % Lymph % (Auto) 39.5 (16.0-40.0) % [place] % (Auto) 7.4 (0.0-15.0) % Eos % (Auto) 1.0 (0.0-7.0) % Baso % (Auto) 0.3 (0.0-1.5) % Neut # (Auto) 3.7 (1.4-5.7) K/uL Lymph # (Auto) 2.8 H (0.6-2.4) K/uL [place] # (Auto) 0.5 (0.0-0.8) K/uL Eos # (Auto) 0.1 (0.0-0.7) K/uL Baso # (Auto) 0.0 (0.0-0.1) K/uL Nucleated RBC % 0.0 /100WBC Nucleated RBCs # 0 K/uL INR 1.05 Sodium 138 (136-145) mmol/L Potassium 3.5 (3.5-5.1) mmol/L Chloride 103 (98-107) mmol/L Carbon Dioxide 25.6 (21.0-32.0) mmol/L BUN 13 (7.0-18.0) mg/dL Creatinine 0.8 (0.6-1.0) mg/dL Est Cr Clr Drug Dosing 101.81 mL/min Estimated GFR (MDRD) > 60.0 ml/min Glucose 91 (74-106) mg/dL Calcium 9.3 (8.5-10.1) mg/dL Magnesium 2.1 (1.8-2.4) mg/dL Total Bilirubin 0.6 (0.2-1.0) mg/dL AST 16 (15-37) IU/L ALT 21 (14-63) IU/L Alkaline Phosphatase 66 (46-116) U/L Troponin I < 0.050 (0.000-0.056) ng/mL Total Protein 7.8 (6.4-8.2) g/dL Albumin 4.4 (3.4-5.0) g/dL Globulin 3.4 (2.6-4.0) g/dL Albumin/Globulin Ratio 1.3 (0.9-1.6) Result Diagrams: 02/17/20 14:11 02/17/20 14:11 Sepsis Event Note - Evaluation Sepsis Screening Result: No Definite Risk - Focused Exam Vital Signs: Vital Signs Temp Pulse Resp BP Pulse Ox 02/17/20 14:15 96.3 F L 109 H 18 130/84 99 - Problem List (1) Chest pain, atypical SNOMED Code(s): 136515622 ICD Code: R07.89 - OTHER CHEST PAIN Status: Acute Current Visit: Yes (2) Palpitations SNOMED Code(s): 09076453 ICD Code: R00.2 - PALPITATIONS Status: Acute Current Visit: No (3) PVCs (premature ventricular contractions) SNOMED Code(s): 78922248 ICD Code: I49.3 - VENTRICULAR PREMATURE DEPOLARIZATION Status: Acute Current Visit: Yes Problem List Initiated/Reviewed/Updated: Yes Orders Last 24hrs: Active Orders 24 hr Category Date Time Status Patient Status [ADT] Routine ADT 02/17/20 15:58 Active Cardiac Monitoring [RC] . DIRECTED Care 02/17/20 14:13 Active EKG Documentation Completion [RC] STAT Care 02/17/20 14:13 Active Pulse Oximetry [RC] ASDIRECTED Care 02/17/20 14:13 Active Telemetry Monitoring [Cardiac Monitoring] [RC] . Care 02/17/20 16:59 Ordered DIRECTED Echo Comp wo Cont [US] Urgent Exams 02/18/20 15:47 Ordered CORONAVIRUS COVID-19 YUSUF [MOLEC] Stat Lab 02/17/20 16:06 Received Metoprolol Succinate [Toprol XL] Med 02/17/20 17:00 Ordered 12.5 mg PO DAILY Sodium Chloride 0.9% [Saline Flush] Med 02/17/20 14:13 Active 10 ml FLUSH ASDIRECTED PRN Sodium Chloride 0.9% [Saline Flush] Med 02/17/20 14:13 Active 2.5 ml FLUSH ASDIRECTED PRN Saline Lock Insert [OM.PC] Stat Oth 02/17/20 14:13 Ordered Medication Orders Metoprolol Succinate (Toprol Xl) 12.5 mg PO DAILY MARÍA Sodium Chloride (Saline Flush) 10 ml FLUSH ASDIRECTED PRN PRN Reason: Keep Vein Open Sodium Chloride (Saline Flush) 2.5 ml FLUSH ASDIRECTED PRN PRN Reason: Keep Vein Open Assessment/Plan Comment:: This 29-year-old admitted with PVCs palpitations and chest pain 1. Tachycardia with bigeminy PVCs -We will start metoprolol 12.5 daily -Monitor on telemetry -Trend troponins -I will give potassium 40 mEq now as potassium is 3.5 would like 4.0 magnesium at 2. -TSH normal will add A1c and lipid panel for complete work-up -Echo ordered VTE prophylaxis: SCDs and ambulation CODE STATUS: Full code Dispo: 1 to 2 days pending improvement
[2020-02-17] MEDS ORDERED: Ondansetron 4 MG/2 ML SDV IVPUSH PRN (17:06)
[2020-02-17] MEDS ORDERED: Acetaminophen 325 MG Tab PO PRN (17:06)
[2020-02-17] MEDS: Metoprolol Succinate 25 MG Tab.ER PO SCH (17:17)
[2020-02-17 18:23] LABS: HEMOGLOBIN A1C 4.7 %
[2020-02-17] MEDS ORDERED: Insulin Glargine,Human Rec. Analog 100 Units/ML 3 ML Pen SUBCUT SCH (21:00)
[2020-02-18 07:25] LABS: BLOOD UREA NITROGEN,BUN 11 mg/dL (7.0-18.0); CHLORIDE,CL 105 mmol/L (98-107); GLUCOSE RANDOM 90 mg/dL (74-106); POTASSIUM,K 4.1 mmol/L (3.5-5.1); SODIUM,NA 139 mmol/L (136-145)
[2020-02-18] MEDS: Metoprolol Succinate 25 MG Tab.ER PO SCH (09:40)
--- NOTE | 2020-02-18 10:49 | PCM.DCSUM1 ---
Discharge Summary - Hospital Course Brief History: This 29-year-old female with past medical history of PVCs presented to the ER today at her nursing clinicals with complaints of chest pain left arm tingling and palpitations. She reports that her nursing resident checked her pulse and it recorded at a rate of 160. She came to the ER to be evaluated. She was seen in the ER approximately 2 weeks ago for similar symptoms at the time she was wearing a Zio patch that was placed to further evaluate these palpitations. She reports a few years ago she was seen and evaluated by Dr. Garcia, cardiology for same symptoms at that time they did consider starting a beta-kina but decided not to. She reports that the last couple months the symptoms have significantly worsened and is quite concerned as she has significant family medical history with heart disease. She denies any alcohol use no tobacco use and no recreational drug use she reports using CBD Gummies which have no THC intermittently for insomnia. She recently stopped all caffeine use approximately 2 weeks ago and has seen no improvement i n palpitations. In the ER lab work essentially normal potassium 3.5 magnesium 2.1 TSH on 02/01 was 3.5. Troponin today was negative chest x-ray negative initial EKG showed bigeminy PVCs with a heart rate of 132, no ST elevation or ischemic changes. She converted naturally without any medications. Repeat EKG showed sinus tachycardia with rate 109. During my assessment she was noted to continue to have PVCs on the monitor as well as via auscultation. She will be admitted observation for palpitations and chest pain ACS rule out. Dr. Donnelly, ED physician reviewed EKG with Dr. Garcia he recommended admission for further evaluation and beta-kina administration. PCP Marah Beverly Diagnosis: Stroke: No - Discharge Data Discharge Date: 02/18/20 Discharge Disposition: Home, Self-Care 01 Condition: Good - Referral to Home Health Primary Care Physician: PCP None - Discharge Diagnosis/Problem(s) (1) Chest pain, atypical SNOMED Code(s): 505601031 ICD Code: R07.89 - OTHER CHEST PAIN Status: Acute Current Visit: Yes (2) Palpitations SNOMED Code(s): 96564725 ICD Code: R00.2 - PALPITATIONS Status: Acute Current Visit: No (3) PVCs (premature ventricular contractions) SNOMED Code(s): 06027385 ICD Code: I49.3 - VENTRICULAR PREMATURE DEPOLARIZATION Status: Acute Current Visit: Yes - Patient Summary/Data Hospital Course: Admitting diagnoses Atypical chest pain PVCs Discharge diagnoses Atypical chest pain-resolved PVCs This 29-year-old female with past medical history of PVCs presented to the ER with palpitations chest pain and left arm tingling. She was admitted for ACS rule out and monitoring due to bigeminy PVCs noted on EKG. She was started on metoprolol XL 12.5 mg daily. PVCs improved overnight while on the metoprolol. Potassium and magnesium remained stable. She is less symptomatic today and is doing much better. ACS ruled out, troponins negative. Vital signs remained stable. She will be discharged home today. Echo was obtained per quick review by Dr. Garcia EF stable and no obvious structural abnormalities noted. Pending final report. Zio patch results are still pending. Results will be reported to Dr. Garcia. She will have follow-up with Dr. Garcia as an outpatient. She is to return to the ER or clinic sooner if concerns should arise. She was counseled on monitoring blood pressure along with heart rate while on this therapy. She reports she may be going home for [place]. And would like to have second opinion with surgical aides teacher there. She was encouraged that this is okay to do and she will be provided a release of information if needed. She was also counseled on refraining from caffeine or stimulant use to lower the rate of PVCs and tachycardia. - Patient Instructions Diet: Regular Diet as Tolerated (no caffiene) Activity: As Tolerated, No Strenuous Activities Driving: May Drive Today Showering/Bathing: May Shower Notify Provider of: Fever, Increased Pain, Swelling and Redness, Drainage, Nausea and/or Vomiting - Discharge Plan *PRESCRIPTION DRUG MONITORING PROGRAM REVIEWED*: Not Applicable *COPY OF PRESCRIPTION DRUG MONITORING REPORT IN PATIENT DENNISE: Not Applicable Prescriptions/Med Rec: Metoprolol Succinate [Toprol XL] 12.5 mg PO DAILY #15 tab.er Home Medications: Home Meds Metoprolol Succinate [Toprol XL] 12.5 mg PO DAILY #15 tab.er 02/18/20 [Rx] Patient Handouts: Metoprolol tablets, Premature Ventricular Contraction, Sinus Tachycardia, Palpitations Forms: ED Department Discharge Referrals: Elma Garcia MD [Physician] - 03/03/20 11:00 am () PCP,None [Primary Care Provider] - Marah Dias NP [Nurse Practitioner] - 02/25/20 12:15 pm (Made the first available appointment, you can call back to reschedule if needed.) - Discharge Summary/Plan Comment DC Time >30 min.: No - Patient Data Vitals - Most Recent: Last Vital Signs Temp 97.9 F 02/18/20 07:15 Pulse 93 02/18/20 09:40 Resp 16 02/18/20 07:15 BP 109/64 02/18/20 09:40 Pulse Ox 98 02/18/20 07:15 Weight - Most Recent: 72.9 kg I&O - Last 24 hours: Intake & Output 02/17/20 02/18/20 02/18/20 22:59 06:59 14:59 Intake Total 800 Output Total 300 Balance 500 Lab Results - Last 24 hrs: Laboratory Results - last 24 hr 02/17/20 02/17/20 02/17/20 Range/Units 14:11 14:11 14:11 WBC 7.16 (4.0-11.0) K/uL RBC 4.15 L (4.30-5.90) M/uL Hgb 13.5 (12.0-16.0) g/dL Hct 39.5 (36.0-46.0) % MCV 95.2 (80.0-98.0) fL MCH 32.5 H (27.0-32.0) pg MCHC 34.2 (31.0-37.0) g/dL RDW Std Deviation 42.4 (28.0-62.0) fl RDW Coeff of [place] 12 (11.0-15.0) % Plt Count 271 (150-400) K/uL MPV 9.20 (7.40-12.00) fL Neut % (Auto) 51.8 (48.0-80.0) % Lymph % (Auto) 39.5 (16.0-40.0) % [place] % (Auto) 7.4 (0.0-15.0) % Eos % (Auto) 1.0 (0.0-7.0) % Baso % (Auto) 0.3 (0.0-1.5) % Neut # (Auto) 3.7 (1.4-5.7) K/uL Lymph # (Auto) 2.8 H (0.6-2.4) K/uL [place] # (Auto) 0.5 (0.0-0.8) K/uL Eos # (Auto) 0.1 (0.0-0.7) K/uL Baso # (Auto) 0.0 (0.0-0.1) K/uL Nucleated RBC % 0.0 /100WBC Nucleated RBCs # 0 K/uL INR 1.05 Sodium 138 (136-145) mmol/L Potassium 3.5 (3.5-5.1) mmol/L Chloride 103 (98-107) mmol/L Carbon Dioxide 25.6 (21.0-32.0) mmol/L BUN 13 (7.0-18.0) mg/dL Creatinine 0.8 (0.6-1.0) mg/dL Est Cr Clr Drug Dosing 101.81 mL/min Estimated GFR (MDRD) > 60.0 ml/min Glucose 91 (74-106) mg/dL Hemoglobin A1c (4.5 - 6.2) % Calcium 9.3 (8.5-10.1) mg/dL Magnesium 2.1 (1.8-2.4) mg/dL Total Bilirubin 0.6 (0.2-1.0) mg/dL AST 16 (15-37) IU/L ALT 21 (14-63) IU/L Alkaline Phosphatase 66 (46-116) U/L Troponin I < 0.050 (0.000-0.056) ng/mL Total Protein 7.8 (6.4-8.2) g/dL Albumin 4.4 (3.4-5.0) g/dL Globulin 3.4 (2.6-4.0) g/dL Albumin/Globulin Ratio 1.3 (0.9-1.6) Triglycerides (0-200) mg/dL Cholesterol (50-200) mg/dL LDL Cholesterol, Calc (60-180) mg/dL VLDL Cholesterol (5-55) mg/dL HDL Cholesterol (40-60) mg/dL Cholesterol/HDL Ratio (3.3-6.0) Urine Color Urine Appearance Urine pH (5.0-8.0) Ur Specific [place] (1.001-1.035) Urine Protein (NEGATIVE) mg/dL Urine Glucose (UA) (NEGATIVE) mg/dL Urine Ketones (NEGATIVE) mg/dL Urine Occult Blood (NEGATIVE) Urine Nitrite (NEGATIVE) Urine Bilirubin (NEGATIVE) Urine Urobilinogen (<2.0) EU/dL Ur Leukocyte Esterase (NEGATIVE) Urine RBC (0-2/HPF) Urine WBC (0-5/HPF) Ur Epithelial Cells (NONE-FEW) Urine Bacteria (NEGATIVE) Urine Mucus (NONE-MOD) SARS-CoV-2 RNA (YUSUF) (NEGATIVE) 02/17/20 02/17/20 02/17/20 Range/Units 14:11 15:15 16:06 WBC (4.0-11.0) K/uL RBC (4.30-5.90) M/uL Hgb (12.0-16.0) g/dL Hct (36.0-46.0) % MCV (80.0-98.0) fL MCH (27.0-32.0) pg MCHC (31.0-37.0) g/dL RDW Std Deviation (28.0-62.0) fl RDW Coeff of [place] (11.0-15.0) % Plt Count (150-400) K/uL MPV (7.40-12.00) fL Neut % (Auto) (48.0-80.0) % Lymph % (Auto) (16.0-40.0) % [place] % (Auto) (0.0-15.0) % Eos % (Auto) (0.0-7.0) % Baso % (Auto) (0.0-1.5) % Neut # (Auto) (1.4-5.7) K/uL Lymph # (Auto) (0.6-2.4) K/uL [place] # (Auto) (0.0-0.8) K/uL Eos # (Auto) (0.0-0.7) K/uL Baso # (Auto) (0.0-0.1) K/uL Nucleated RBC % /100WBC Nucleated RBCs # K/uL INR Sodium (136-145) mmol/L Potassium (3.5-5.1) mmol/L Chloride (98-107) mmol/L Carbon Dioxide (21.0-32.0) mmol/L BUN (7.0-18.0) mg/dL Creatinine (0.6-1.0) mg/dL Est Cr Clr Drug Dosing mL/min Estimated GFR (MDRD) ml/min Glucose (74-106) mg/dL Hemoglobin A1c 4.7 (4.5 - 6.2) % Calcium (8.5-10.1) mg/dL Magnesium (1.8-2.4) mg/dL Total Bilirubin (0.2-1.0) mg/dL AST (15-37) IU/L ALT (14-63) IU/L Alkaline Phosphatase (46-116) U/L Troponin I (0.000-0.056) ng/mL Total Protein (6.4-8.2) g/dL Albumin (3.4-5.0) g/dL Globulin (2.6-4.0) g/dL Albumin/Globulin Ratio (0.9-1.6) Triglycerides (0-200) mg/dL Cholesterol (50-200) mg/dL LDL Cholesterol, Calc (60-180) mg/dL VLDL Cholesterol (5-55) mg/dL HDL Cholesterol (40-60) mg/dL Cholesterol/HDL Ratio (3.3-6.0) Urine Color YELLOW Urine Appearance HAZY Urine pH 5.5 (5.0-8.0) Ur Specific [place] <= 1.005 (1.001-1.035) Urine Protein NEGATIVE (NEGATIVE) mg/dL Urine Glucose (UA) NEGATIVE (NEGATIVE) mg/dL Urine Ketones NEGATIVE (NEGATIVE) mg/dL Urine Occult Blood TRACE-INTACT H (NEGATIVE) Urine Nitrite NEGATIVE (NEGATIVE) Urine Bilirubin NEGATIVE (NEGATIVE) Urine Urobilinogen 0.2 (<2.0) EU/dL Ur Leukocyte Esterase TRACE H (NEGATIVE) Urine RBC 0-1 (0-2/HPF) Urine WBC 2-4 (0-5/HPF) Ur Epithelial Cells FEW (NONE-FEW) Urine Bacteria FEW (NEGATIVE) Urine Mucus LIGHT (NONE-MOD) SARS-CoV-2 RNA (YUSUF) NEGATIVE (NEGATIVE) 02/17/20 02/18/20 02/18/20 Range/Units 20:15 02:08 02:08 WBC 9.60 (4.0-11.0) K/uL RBC 3.98 L (4.30-5.90) M/uL Hgb 12.9 (12.0-16.0) g/dL Hct 37.8 (36.0-46.0) % MCV 95.0 (80.0-98.0) fL MCH 32.4 H (27.0-32.0) pg MCHC 34.1 (31.0-37.0) g/dL RDW Std Deviation 42.8 (28.0-62.0) fl RDW Coeff of [place] 12 (11.0-15.0) % Plt Count 276 (150-400) K/uL MPV 9.00 (7.40-12.00) fL Neut % (Auto) 63.9 (48.0-80.0) % Lymph % (Auto) 30.0 (16.0-40.0) % [place] % (Auto) 5.6 (0.0-15.0) % Eos % (Auto) 0.3 (0.0-7.0) % Baso % (Auto) 0.2 (0.0-1.5) % Neut # (Auto) 6.1 H (1.4-5.7) K/uL Lymph # (Auto) 2.9 H (0.6-2.4) K/uL [place] # (Auto) 0.5 (0.0-0.8) K/uL Eos # (Auto) 0.0 (0.0-0.7) K/uL Baso # (Auto) 0.0 (0.0-0.1) K/uL Nucleated RBC % 0.0 /100WBC Nucleated RBCs # 0 K/uL INR Sodium 139 (136-145) mmol/L Potassium 4.1 (3.5-5.1) mmol/L Chloride 105 (98-107) mmol/L Carbon Dioxide 25.0 (21.0-32.0) mmol/L BUN 11 (7.0-18.0) mg/dL Creatinine 0.7 (0.6-1.0) mg/dL Est Cr Clr Drug Dosing 116.35 mL/min Estimated GFR (MDRD) > 60.0 ml/min Glucose 90 (74-106) mg/dL Hemoglobin A1c (4.5 - 6.2) % Calcium 9.1 (8.5-10.1) mg/dL Magnesium (1.8-2.4) mg/dL Total Bilirubin (0.2-1.0) mg/dL AST (15-37) IU/L ALT (14-63) IU/L Alkaline Phosphatase (46-116) U/L Troponin I < 0.050 (0.000-0.056) ng/mL Total Protein (6.4-8.2) g/dL Albumin (3.4-5.0) g/dL Globulin (2.6-4.0) g/dL Albumin/Globulin Ratio (0.9-1.6) Triglycerides 47 (0-200) mg/dL Cholesterol 141 (50-200) mg/dL LDL Cholesterol, Calc 73 (60-180) mg/dL VLDL Cholesterol 9 (5-55) mg/dL HDL Cholesterol 59 (40-60) mg/dL Cholesterol/HDL Ratio 2.4 L (3.3-6.0) Urine Color Urine Appearance Urine pH (5.0-8.0) Ur Specific [place] (1.001-1.035) Urine Protein (NEGATIVE) mg/dL Urine Glucose (UA) (NEGATIVE) mg/dL Urine Ketones (NEGATIVE) mg/dL Urine Occult Blood (NEGATIVE) Urine Nitrite (NEGATIVE) Urine Bilirubin (NEGATIVE) Urine Urobilinogen (<2.0) EU/dL Ur Leukocyte Esterase (NEGATIVE) Urine RBC (0-2/HPF) Urine WBC (0-5/HPF) Ur Epithelial Cells (NONE-FEW) Urine Bacteria (NEGATIVE) Urine Mucus (NONE-MOD) SARS-CoV-2 RNA (YUSUF) (NEGATIVE) 02/18/20 02/18/20 Range/Units 02:08 02:08 WBC (4.0-11.0) K/uL RBC (4.30-5.90) M/uL Hgb (12.0-16.0) g/dL Hct (36.0-46.0) % MCV (80.0-98.0) fL MCH (27.0-32.0) pg MCHC (31.0-37.0) g/dL RDW Std Deviation (28.0-62.0) fl RDW Coeff of [place] (11.0-15.0) % Plt Count (150-400) K/uL MPV (7.40-12.00) fL Neut % (Auto) (48.0-80.0) % Lymph % (Auto) (16.0-40.0) % [place] % (Auto) (0.0-15.0) % Eos % (Auto) (0.0-7.0) % Baso % (Auto) (0.0-1.5) % Neut # (Auto) (1.4-5.7) K/uL Lymph # (Auto) (0.6-2.4) K/uL [place] # (Auto) (0.0-0.8) K/uL Eos # (Auto) (0.0-0.7) K/uL Baso # (Auto) (0.0-0.1) K/uL Nucleated RBC % /100WBC Nucleated RBCs # K/uL INR Sodium (136-145) mmol/L Potassium (3.5-5.1) mmol/L Chloride (98-107) mmol/L Carbon Dioxide (21.0-32.0) mmol/L BUN (7.0-18.0) mg/dL Creatinine (0.6-1.0) mg/dL Est Cr Clr Drug Dosing mL/min Estimated GFR (MDRD) ml/min Glucose (74-106) mg/dL Hemoglobin A1c (4.5 - 6.2) % Calcium (8.5-10.1) mg/dL Magnesium 2.1 (1.8-2.4) mg/dL Total Bilirubin (0.2-1.0) mg/dL AST (15-37) IU/L ALT (14-63) IU/L Alkaline Phosphatase (46-116) U/L Troponin I < 0.050 (0.000-0.056) ng/mL Total Protein (6.4-8.2) g/dL Albumin (3.4-5.0) g/dL Globulin (2.6-4.0) g/dL Albumin/Globulin Ratio (0.9-1.6) Triglycerides (0-200) mg/dL Cholesterol (50-200) mg/dL LDL Cholesterol, Calc (60-180) mg/dL VLDL Cholesterol (5-55) mg/dL HDL Cholesterol (40-60) mg/dL Cholesterol/HDL Ratio (3.3-6.0) Urine Color Urine Appearance Urine pH (5.0-8.0) Ur Specific [place] (1.001-1.035) Urine Protein (NEGATIVE) mg/dL Urine Glucose (UA) (NEGATIVE) mg/dL Urine Ketones (NEGATIVE) mg/dL Urine Occult Blood (NEGATIVE) Urine Nitrite (NEGATIVE) Urine Bilirubin (NEGATIVE) Urine Urobilinogen (<2.0) EU/dL Ur Leukocyte Esterase (NEGATIVE) Urine RBC (0-2/HPF) Urine WBC (0-5/HPF) Ur Epithelial Cells (NONE-FEW) Urine Bacteria (NEGATIVE) Urine Mucus (NONE-MOD) SARS-CoV-2 RNA (YUSUF) (NEGATIVE) Med Orders - Current: Current Medications Acetaminophen (Tylenol) 650 mg PO Q4H PRN PRN Reason: Pain (Mild 1-3)/fever Metoprolol Succinate (Toprol Xl) 12.5 mg PO DAILY MARÍA Last Admin: 02/18/20 09:40 Dose: 12.5 mg Documented by: Ondansetron HCl (Zofran) 4 mg IVPUSH Q4H PRN PRN Reason: Nausea Sodium Chloride (Saline Flush) 2.5 ml FLUSH ASDIRECTED PRN PRN Reason: Keep Vein Open Last Admin: 02/17/20 17:18 Dose: 2.5 ml Documented by: Discontinued Medications Potassium Chloride (Klor-Con M20) 40 meq PO ONETIME ONE Stop: 02/17/20 16:49 Last Admin: 02/17/20 17:16 Dose: 40 meq Documented by: Sodium Chloride (Saline Flush) 10 ml FLUSH ASDIRECTED PRN PRN Reason: Keep Vein Open Last Admin: 02/17/20 17:18 Dose: 10 ml Documented by: Sodium Chloride (Saline Flush) 2.5 ml FLUSH ASDIRECTED PRN PRN Reason: Keep Vein Open Last Admin: 02/17/20 17:18 Dose: 2.5 ml Documented by: - Exam General: Reports: Alert, Oriented, Cooperative, No Acute Distress Lungs: Reports: Clear to Auscultation, Normal Respiratory Effort Cardiovascular: Reports: Regular Rhythm, Irregular Rhythm (Intermittent noted on auscultation) GI/Abdominal Exam: Normal Bowel Sounds, Soft, Non-Tender Back Exam: Reports: Normal Inspection Extremities: Normal Inspection, Normal Range of Motion, Non-Tender, No Pedal Edema Neurological: Reports: No New Focal Deficit Psy/Mental Status: Reports: Alert, Normal Affect, Normal Mood
--- NOTE | 2020-02-19 12:54 | ECHO ---
EXAM DATE: 02/17/20 PATIENT'S AGE: 29 The ECHO report has been scanned into [employer] and can be seen in this patient's EMR (Electronic Medical Record) under the REPORTS section. The report has also been scanned into PACS. BRE
== END 2020-02-18 14:25 | disposition home or self-care (01) ==
LOC: MW.ED 14:04 → MW.MS 17:28
PROVIDERS: ADMIT Student in an Organized Health Care Education/Training Program; ATTEND Student in an Organized Health Care Education/Training Program
DX: I49.3 Ventricular premature depolarization (principal); Z20.828 Contact with and (suspected) exposure to other viral communicable diseases
CPT/HCPCS: 36415; 71045; 80048; 80053; 80061; 81001; 81003; 83036; 83735; 84484; 85025; 85610; 87086; 87635; 93005; 93306; 99285; A9270; G0378; 93010; U0002

== ENCOUNTER 2020-05-03 14:35 | Emergency (ER) | payer SELFPAY ==
--- NOTE | 2020-05-03 14:52 | PCM.EKG ---
#1 Interpretation EKG Date: 05/03/20 Time: 14:40 Rhythm: NSR Rate (Beats/Min): 107 QT: Normal EKG Interpretation Comments: PVC
[2020-05-03 15:33] LABS: BLOOD UREA NITROGEN,BUN 14 mg/dL (7.0-18.0); CARBON DIOXIDE,CO2 24.6 mmol/L (21.0-32.0); CHLORIDE,CL 104 mmol/L (98-107); GLUCOSE RANDOM 132 mg/dL (74-106); POTASSIUM,K 3.8 mmol/L (3.5-5.1); SODIUM,NA 141 mmol/L (136-145)
--- NOTE | 2020-05-03 16:50 | EDM.PDOC ---
ED HPI GENERAL MEDICAL PROBLEM - General Chief Complaint: General Stated Complaint: IRREGULAR HEART BEAT Time Seen by Provider: 05/03/20 14:37 Source of Information: Reports: Patient History Limitations: Reports: No Limitations - History of Present Illness INITIAL COMMENTS - FREE TEXT/NARRATIVE: HISTORY AND PHYSICAL: History of present illness: Patient is a 29-year-old female who presents emergency room today with concern of palpitations. Patient states that she had an episode of dizziness and feeling like the room was spinning and then began having palpitations and states her heart rate was around 140. Patient states that she has a history of AV rosalva tachycardia and follows with a instructor creeler back home in [facility]. Patient states that she is currently on diltiazem with the intention of going through an ablation after patient completes schooling in July. Patient states that she has had episodes of dizziness prior and is concerned that her heart rate was too fast. Patient states now that she is in the emergency room, she feels her heart rate has improved and she is no longer having any symptoms at this time. Patient denies fever, chills, chest pain, shortness of breath, or cough. Denies headache, neck stiff ness, change in vision, syncope, or near syncope. Denies nausea, vomiting, abdominal pain, diarrhea, constipation, or dysuria. Has not noted any blood in urine or stool. Patient has been eating and drinking appropriately. Review of systems: As per history of present illness and below otherwise all systems reviewed and negative. Past medical history: As per history of present illness and as reviewed below otherwise noncontributory. Surgical history: As per history of present illness and as reviewed below otherwise noncontributo ry. Social history: See social history for further information Family history: As per history of present illness and as reviewed below otherwise noncontributory. Physical exam: General: Patient is alert, oriented, and in no acute distress. Patient sitting comfortably on exam table. Vitals stable and reviewed by me. HEENT: Atraumatic, normocephalic, pupils equal and reactive bilaterally, nega tive for conjunctival pallor or scleral icterus, mucous membranes moist, TMs normal bilaterally, throat clear, neck supple, nontender, trachea midline. No drooling or trismus noted. No meningeal signs. No hot potato voice noted. Lungs: Clear to auscultation, breath sounds equal bilaterally, chest nontender. Heart: S1S2, regular rate and rhythm without overt murmur Abdomen: Soft, nondistended, nontender. Negative for masses or hepatosplenomegaly. Negative for costovertebral tenderness. Pelvis: Stable nontender. Genitourinary: Deferred. Rectal: Deferred. Skin: Intact, warm, dry. No lesions or rashes noted. Extremities: Atraumatic, negative for cords or calf pain. Neurovascular unremarkable. Neuro: Awake, alert, oriented. Cranial nerves II through XII unremarkable. Cerebellum unremarkable. Motor and sensory unremarkable throughout. Exam nonfocal. Notes: See Dr. Allen's dictation for EKG interpretation. Patient did call her instructor creeler while diagnostics were being completed and states that she has a follow-up appointment with him this week. Patient states that he did not seem concerned and to closely symptom monitor. Admission for observation was offered to patient but she declines at this time. All risks versus benefits discussed with patient and expresses understanding. Voices understanding and is agreeable to plan of care. Denies any further questions or concerns at this time. Diagnostics: EKG, CBC, CMP, UA, Magnesium, Trop, Hcg, CXR Therapeutics: None Prescription: None Impression: Palpitations Plan: 1. Follow-up with your instructor creeler as scheduled and as discussed. Return to the ED as needed and as discussed. Definitive disposition and diagnosis as appropriate pending reevaluation and review of above. 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, PACs, AV node reentry MEDICAL COLLECTIONS SPECIALIST History: Reports: , Spontaneous Other MEDICAL COLLECTIONS SPECIALIST History: pt current preg - Infectious Disease History Infectious Disease History: Reports: None - Past Surgical History HEENT Surgical History: Reports: None Cardiovascular Surgical History: Reports: None Social & Family History - Family History Family Medical History: No Pertinent Family History - Tobacco Use Tobacco Use Status *Q: Never Tobacco User - Caffeine Use Caffeine Use: Reports: Coffee, Soda Other Caffeine Use: denies other stimulant or energy drink use - Recreational Drug Use Recreational Drug Use: No - Living Situation & Occupation Living situation: Reports: (with two children) 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 ED EXAM, GENERAL - Physical Exam Exam: See Below (see dictation) Course - Vital Signs Last Recorded V/S: Last Vital Signs Temp 97.6 F 05/03/20 17:04 Pulse 77 05/03/20 17:04 Resp 20 05/03/20 17:04 BP 98/50 L 05/03/20 17:04 Pulse Ox 98 05/03/20 17:04 - Orders/Labs/Meds Labs: Laboratory Tests 05/03/20 05/03/20 05/03/20 Range/Units 15:00 15:00 15:54 WBC 6.77 (4.0-11.0) K/uL RBC 3.97 L (4.30-5.90) M/uL Hgb 13.1 (12.0-16.0) g/dL Hct 37.6 (36.0-46.0) % MCV 94.7 (80.0-98.0) fL MCH 33.0 H (27.0-32.0) pg MCHC 34.8 (31.0-37.0) g/dL RDW Std Deviation 43.0 (28.0-62.0) fl RDW Coeff of Alta 13 (11.0-15.0) % Plt Count 285 (150-400) K/uL MPV 9.30 (7.40-12.00) fL Neut % (Auto) 71.0 (48.0-80.0) % Lymph % (Auto) 22.7 (16.0-40.0) % [place] % (Auto) 5.2 (0.0-15.0) % Eos % (Auto) 0.7 (0.0-7.0) % Baso % (Auto) 0.4 (0.0-1.5) % Neut # (Auto) 4.8 (1.4-5.7) K/uL Lymph # (Auto) 1.5 (0.6-2.4) K/uL [place] # (Auto) 0.4 (0.0-0.8) K/uL Eos # (Auto) 0.1 (0.0-0.7) K/uL Baso # (Auto) 0.0 (0.0-0.1) K/uL Nucleated RBC % 0.0 /100WBC Nucleated RBCs # 0 K/uL Sodium 141 (136-145) mmol/L Potassium 3.8 (3.5-5.1) mmol/L Chloride 104 (98-107) mmol/L Carbon Dioxide 24.6 (21.0-32.0) mmol/L BUN 14 (7.0-18.0) mg/dL Creatinine 1.0 (0.6-1.0) mg/dL Est Cr Clr Drug Dosing 78.41 mL/min Estimated GFR (MDRD) > 60.0 ml/min Glucose 132 H (74-106) mg/dL Calcium 8.3 L (8.5-10.1) mg/dL Magnesium 2.1 (1.8-2.4) mg/dL Total Bilirubin 0.4 (0.2-1.0) mg/dL AST 12 L (15-37) IU/L ALT 18 (14-63) IU/L Alkaline Phosphatase 58 (46-116) U/L Troponin I < 0.050 (0.000-0.056) ng/mL Total Protein 7.2 (6.4-8.2) g/dL Albumin 3.8 (3.4-5.0) g/dL Globulin 3.4 (2.6-4.0) g/dL Albumin/Globulin Ratio 1.1 (0.9-1.6) Urine Color YELLOW Urine Appearance CLEAR Urine pH 7.0 (5.0-8.0) Ur Specific Malone 1.010 (1.001-1.035) Urine Protein NEGATIVE (NEGATIVE) mg/dL Urine Glucose (UA) NEGATIVE (NEGATIVE) mg/dL Urine Ketones NEGATIVE (NEGATIVE) mg/dL Urine Occult Blood LARGE H (NEGATIVE) Urine Nitrite NEGATIVE (NEGATIVE) Urine Bilirubin NEGATIVE (NEGATIVE) Urine Urobilinogen 0.2 (<2.0) EU/dL Ur Leukocyte Esterase NEGATIVE (NEGATIVE) Urine RBC 3-5 (0-2/HPF) Urine WBC 0-1 (0-5/HPF) Ur Epithelial Cells RARE (NONE-FEW) Urine Bacteria RARE (NEGATIVE) Urine HCG, Qual (NEGATIVE) 02/22/21 Range/Units 15:54 WBC (4.0-11.0) K/uL RBC (4.30-5.90) M/uL Hgb (12.0-16.0) g/dL Hct (36.0-46.0) % MCV (80.0-98.0) fL MCH (27.0-32.0) pg MCHC (31.0-37.0) g/dL RDW Std Deviation (28.0-62.0) fl RDW Coeff of Alta (11.0-15.0) % Plt Count (150-400) K/uL MPV (7.40-12.00) fL Neut % (Auto) (48.0-80.0) % Lymph % (Auto) (16.0-40.0) % [place] % (Auto) (0.0-15.0) % Eos % (Auto) (0.0-7.0) % Baso % (Auto) (0.0-1.5) % Neut # (Auto) (1.4-5.7) K/uL Lymph # (Auto) (0.6-2.4) K/uL [place] # (Auto) (0.0-0.8) K/uL Eos # (Auto) (0.0-0.7) K/uL Baso # (Auto) (0.0-0.1) K/uL Nucleated RBC % /100WBC Nucleated RBCs # K/uL Sodium (136-145) mmol/L Potassium (3.5-5.1) mmol/L Chloride (98-107) mmol/L Carbon Dioxide (21.0-32.0) mmol/L BUN (7.0-18.0) mg/dL Creatinine (0.6-1.0) mg/dL Est Cr Clr Drug Dosing mL/min Estimated GFR (MDRD) ml/min Glucose (74-106) mg/dL Calcium (8.5-10.1) mg/dL Magnesium (1.8-2.4) mg/dL Total Bilirubin (0.2-1.0) mg/dL AST (15-37) IU/L ALT (14-63) IU/L Alkaline Phosphatase (46-116) U/L Troponin I (0.000-0.056) ng/mL Total Protein (6.4-8.2) g/dL Albumin (3.4-5.0) g/dL Globulin (2.6-4.0) g/dL Albumin/Globulin Ratio (0.9-1.6) Urine Color Urine Appearance Urine pH (5.0-8.0) Ur Specific Malone (1.001-1.035) Urine Protein (NEGATIVE) mg/dL Urine Glucose (UA) (NEGATIVE) mg/dL Urine Ketones (NEGATIVE) mg/dL Urine Occult Blood (NEGATIVE) Urine Nitrite (NEGATIVE) Urine Bilirubin (NEGATIVE) Urine Urobilinogen (<2.0) EU/dL Ur Leukocyte Esterase (NEGATIVE) Urine RBC (0-2/HPF) Urine WBC (0-5/HPF) Ur Epithelial Cells (NONE-FEW) Urine Bacteria (NEGATIVE) Urine HCG, Qual NEGATIVE (NEGATIVE) Departure - Departure Time of Disposition: 16:49 Disposition: Home, Self-Care 01 Clinical Impression: Palpitations - Discharge Information Instructions: Palpitations, Fizy-ko-[id number] Referrals: Zach Small MD [Primary Care Provider] - Forms: ED Department Discharge Additional Instructions: The following information is given to patients seen in the emergency department who are being discharged to home. This information is to outline your options for follow-up care. We provide all patients seen in our emergency department with a follow-up referral. The need for follow-up, as well as the timing and circumstances, are variable depending upon the specifics of your emergency department visit. If you don't have a primary care physician on staff, we will provide you with a referral. We always advise you to contact your personal physician following an emergency department visit to inform them of the circumstance of the visit and for follow-up with them and/or the need for any referrals to a consulting specialist. The emergency department will also refer you to a specialist when appropriate. This referral assures that you have the opportunity for follow-up care with a specialist. All of these measure are taken in an effort to provide you with optimal care, which includes your follow-up. Under all circumstances we always encourage you to contact your private physician who remains a resource for coordinating your care. When calling for follow-up care, please make the office aware that this follow-up is from your recent emergency room visit. If for any reason you are refused follow-up, please contact the [facility] Emergency Department at and asked to speak to the emergency department charge nurse. [facility] [address] [place] [address] [facility] [address] [place] [id number] 1. Follow-up with your instructor creeler as scheduled and as discussed. Return to the ED as needed and as discussed. Sepsis Event Note (ED) - Evaluation Sepsis Screening Result: No Definite Risk - Focused Exam Vital Signs: Vital Signs Temp Pulse Resp BP Pulse Ox 05/03/20 17:04 97.6 F 77 20 98/50 L 98 05/03/20 14:50 97.2 F 102 H 16 117/69 100
--- NOTE | 2020-05-03 16:51 | CR ---
INDICATION: Pain and shortness of breath COMPARISON: 02/17/2020 FINDINGS: An erect single view of the chest was obtained at 16 10 hours. The lungs remain clear. No focal or diffuse infiltrates are present. There is no sign of pneumothorax or any abnormality of the ribs to correlate with history of chest pain. The heart remains normal in size. The mediastinum is normal in appearance. The osseous structures are normal in appearance for the patient`s age. IMPRESSION: Normal chest single view. Dictated by Mejia Rueda MD @ May 03 2020 4:48PM Signed by Dr. Mejia Rueda @ May 03 2020 4:49PM
== END 2020-05-03 17:08 | disposition home or self-care (01) ==
LOC: MW.ED 14:35
DX: R00.2 Palpitations (principal); R42 Dizziness and giddiness
CPT/HCPCS: 36415; 71045; 71045-26; 80053; 81001; 81025; 83735; 84484; 85025; 93005; 93010; 99282; 99285-25

== ENCOUNTER 2020-07-27 11:48 | Emergency (ER) | payer OTHER ==
--- NOTE | 2020-07-27 12:13 | PCM.EKG ---
#1 Interpretation EKG Date: 07/27/20 Time: 11:59 Rhythm: NSR Rate (Beats/Min): 93 Ono: Normal P-Wave: Present QRS: Normal ST-T: Normal QT: Normal Comparison: No Change (05/03/20) EKG Interpretation Comments: Sinus rhythm with occasional PVC
[2020-07-27] MEDS ORDERED: Aspirin 81 MG Tab.Chew PO ONE (12:18)
[2020-07-27] MEDS ORDERED: Ketorolac 15 MG/ML SDV IVPUSH ONE (12:44)
[2020-07-27 13:10] LABS: BLOOD UREA NITROGEN,BUN 10 mg/dL (7.0-18.0); CARBON DIOXIDE,CO2 27.7 mmol/L (21.0-32.0); CHLORIDE,CL 104 mmol/L (98-107); GLUCOSE RANDOM 76 mg/dL (74-106); SODIUM,NA 139 mmol/L (136-145)
--- NOTE | 2020-07-27 13:15 | CR ---
INDICATION: Chest pain. TECHNIQUE: Upright portable AP image of the chest. COMPARISON: 05/03/2020. FINDINGS: Lungs clear. No pleural effusion or pneumothorax. Heart size and pulmonary vasculature within normal limits. No obvious rib fracture or other significant osseous abnormality. IMPRESSION: Negative chest. Dictated by Joss Sutherland MD @ 07/27/2020 1:13:[address] Joss Sutherland @ Jul 27 2020 1:13PM
--- NOTE | 2020-07-27 14:07 | EDM.PDOC ---
ED HPI GENERAL MEDICAL PROBLEM - General Chief Complaint: Chest Pain Stated Complaint: chect pain Time Seen by Provider: 07/27/20 12:15 - History of Present Illness INITIAL COMMENTS - FREE TEXT/NARRATIVE: CHIEF COMPLAINT(S): Chest pain HISTORY OF PRESENT ILLNESS: This is a 29-year-old woman in with a past medical history of occasional PVCs and PACs who comes to the emergency department with a chief complaint of chest pain. The patient states that earlier today she had picked up her daughter and when she got up the stairs she noticed that she had chest pain which she describes as sharp and achy rated 4-5 out of 10 which radiates from her posterior back anteriorly. She states that she also has some pain on the right side. She states that the pain is relieved by sitting on her side. She denies any associated shortness of breath, diaphoresis, nausea or vomiting. She denies any syncope or presyncope. She denies any numbness or tingling. She denies any headache, blurry vision. She denies any family history of CAD or early onset CAD. She denies any personal history of CAD. She states that she does follow with Dr. Hirsch and they plan for an ablation soon in a couple of weeks. 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 She denies any other symptoms. The pain that she is experience is that is exacerbated by movement. It is relieved by sitting still. She has not yet taken thing for pain. REVIEW OF SYSTEMS: Constitutional: Denies fever, chills. Eyes: Denies eye pain Ears, Nose, Mouth, & Throat: Denies earache Cardiovascular: Positive for bilateral chest pain Respiratory: Denies shortness of breath Gastrointestinal: Denies Nausea, vomiting, diarrhea, hematochezia. Genitourinary: Denies hematuria Skin:Denies a rash MSK: Positive for left back pain Neurological: Denies blurred vision, numbness, tingling, weakness Psychiatric: Denies depression PAST MEDICAL HISTORY: As per history of present illness and as reviewed below otherwise noncontributory. SURGICAL HISTORY: As per history of present illness and as reviewed below otherwise noncontributory. SOCIAL HISTORY: As per history of present illness and as reviewed below otherwise noncontributory. FAMILY HISTORY: As per history of present illness and as reviewed below otherwise noncontributory. EXAMINATION OF ORGAN SYSTEMS/BODY AREAS: Constitutional: Blood pressure was 143/88, heart rate 106, respiratory rate 18 with an oxygen saturation of 100% on room air. Temperature 36.5 General: Overall well-appearing woman who is in no acute distress Psychiatric: Appropriate mood and affect. Eyes: No scleral icterus or conjunctival erythema ENMT: Moist mucous membranes. No pharyngeal erythema Cardiovascular: Regular, rate, and rhythm. No gallops, murmurs, or rubs. Bilateral upper extremity pulses symmetric and intact. No peripheral edema. No JVD. Respiratory: Lungs clear to auscultation bilaterally. No wheezes, rales, or rhonchi. Gastrointestinal: Soft, non-tender, non-distended. Normoactive bowel sounds Genitourinary: No suprapubic tenderness Musculoskeletal: There is tenderness to palpation along the paraspinal muscles on the left side in the thoracic range which radiates anteriorly and on the rig ht side anteriorly of the chest wall. No overlying skin changes. Skin: No lesions or abrasions. Neurological: Alert, GCS 15 MEDICAL DECISION MAKING AND COURSE IN THE ED WITH INTERPRETATION/REVIEW OF DIAGNOSTIC STUDIES: This is a 29-year-old woman with a past medical history of SVT, PVC, PAC who comes to the emergency department with acute chest pain after picking up her daughter which is worsened by movement who overall appears well. At this time we did obtain labs to evaluate for ACS. The patient is low risk at this time. We did provide the patient with Motrin and Toradol. EKG was obtained which did not reveal any acute signs of ischemia. There were occasional PVCs. This is unchanged from prior. Heart Score History: Slightly or Non-Suspicious (0) ECG: Non-specific repolarization (1) Age: <45 (0) Risk Factors: No known risk factors (0) Initial Troponin: </= normal limit (0) Total Score: 1 Wells Criteria Clinical signs/symptoms of DVT: No (0) PE #1 Dx or equally likely: No (0) Heart Rate >100: No (0) Immobilization for 3 days or surgery in last month: No (0) Previously Dx PE or DVT: No (0) Hemoptysis: No (0) Malignancy w/ Tx within 6 months or palliative: No (0) Wells Score: 0 Laboratory: CBC is unremarkable. CMP is unremarkable. TSH and T4 normal. Troponin is negative. The radiological images were viewed by myself along with reading the report from the radiologist. Chest x-ray does not reveal an acute cardiopulmonary process. After labs and imaging I did discuss results with the patient. I did discuss with her symptomatic treatment at home. I did discuss strict return precautions. The patient was amenable to discharge at this time and had no further questions. DISPOSITION: The patient was discharged home in stable condition. The patient w ill follow up with her remote ruby on rails developer at her scheduled appointment CONDITION: Fair PROCEDURES: None FINAL IMPRESSION(S)/DIAGNOSES: 1. Acute atypical chest pain likely musculoskeletal Mati Brennan M.D. 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: Reports: , Spontaneous Other FIXED INCOME PORTFOLIO MANAGER History: pt current preg Psychiatric History: Reports: Anxiety - Infectious Disease History Infectious Disease History: Reports: None - Past Surgical History HEENT Surgical History: Reports: None Cardiovascular Surgical History: Reports: None Social & Family History - Family History Family Medical History: No Pertinent Family History - Tobacco Use Tobacco Use Status *Q: Never Tobacco User - Caffeine Use Caffeine Use: Reports: Coffee, Soda Other Caffeine Use: denies other stimulant or energy drink use - Recreational Drug Use Recreational Drug Use: No - Living Situation & Occupation Living situation: Reports: (with two children) 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 ([employer]) ED ROS GENERAL - Review of Systems Review Of Systems: See Below ED EXAM, GENERAL - Physical Exam Exam: See Below Course - Vital Signs Last Recorded V/S: Last Vital Signs Temp 36.3 C 07/27/20 14:11 Pulse 80 07/27/20 14:11 Resp 18 07/27/20 14:11 BP 122/74 07/27/20 14:11 Pulse Ox 95 07/27/20 14:11 - Orders/Labs/Meds Labs: Laboratory Tests 07/27/20 07/27/20 Range/Units 12:20 12:20 WBC 5.46 (4.0-11.0) K/uL RBC 4.38 (4.30-5.90) M/uL Hgb 14.6 (12.0-16.0) g/dL Hct 42.1 (36.0-46.0) % MCV 96.1 (80.0-98.0) fL MCH 33.3 H (27.0-32.0) pg MCHC 34.7 (31.0-37.0) g/dL RDW Std Deviation 43.1 (28.0-62.0) fl RDW Coeff of [place]ta 12 (11.0-15.0) % Plt Count 300 (150-400) K/uL MPV 9.40 (7.40-12.00) fL Neut % (Auto) 62.5 (48.0-80.0) % Lymph % (Auto) 29.1 (16.0-40.0) % [place] % (Auto) 7.0 (0.0-15.0) % Eos % (Auto) 0.9 (0.0-7.0) % Baso % (Auto) 0.5 (0.0-1.5) % Neut # (Auto) 3.4 (1.4-5.7) K/uL Lymph # (Auto) 1.6 (0.6-2.4) K/uL [place] # (Auto) 0.4 (0.0-0.8) K/uL Eos # (Auto) 0.1 (0.0-0.7) K/uL Baso # (Auto) 0.0 (0.0-0.1) K/uL Nucleated RBC % 0.0 /100WBC Nucleated RBCs # 0 K/uL Sodium 139 (136-145) mmol/L Potassium 4.0 (3.5-5.1) mmol/L Chloride 104 (98-107) mmol/L Carbon Dioxide 27.7 (21.0-32.0) mmol/L BUN 10 (7.0-18.0) mg/dL Creatinine 0.9 (0.6-1.0) mg/dL Est Cr Clr Drug Dosing 90.50 mL/min Estimated GFR (MDRD) > 60.0 ml/min Glucose 76 (74-106) mg/dL Calcium 8.5 (8.5-10.1) mg/dL Magnesium 2.0 (1.8-2.4) mg/dL Troponin I < 0.050 (0.000-0.056) ng/mL Free T4 0.86 (0.76-1.46) ng/dL TSH 3rd Generation 0.85 (0.36-3.74) uIU/mL Meds: Medications Discontinued Medications Generic Name Dose Route Start Last Admin Trade Name Freq PRN Reason Stop Dose Admin Aspirin 324 mg 07/27/20 12:18 07/27/20 12:24 Aspirin 81 Mg Tab.Chew PO 07/27/20 12:19 324 mg ONETIME ONE Administration Ketorolac Tromethamine 15 mg 07/27/20 12:44 07/27/20 13:45 Ketorolac 15 Mg/Ml Sdv IVPUSH 07/27/20 12:45 15 mg ONETIME ONE Administration Departure - Departure Time of Disposition: 14:06 Disposition: Home, Self-Care 01 Condition: Fair Clinical Impression: Pleurisy, Chest pain - Discharge Information *PRESCRIPTION DRUG MONITORING PROGRAM REVIEWED*: No *COPY OF PRESCRIPTION DRUG MONITORING REPORT IN PATIENT DENNISE: No Instructions: Nonspecific Chest Pain, Adult, [id number], Pleurisy, [id number] Referrals: Zach Small MD [Primary Care Provider] - Forms: ED Department Discharge Additional Instructions: You were evaluated today on an emergent basis today. I do recommend use Tylenol and Motrin for pain relief. Use incentive spirometer approximately 3-4 times per hour. This will help prevent pneumonia. If you have any worsening chest pain, passout, shortness of breath please return to the emergency department. In addition I do recommend you contact your remote ruby on rails developer to schedule that ablation. Your EKG did show PVCs today however was unchanged from prior. Pleas e follow-up with your primary care physician within 1 to 3 days. Please use: Tylenol 500-1000mg every 6 hours (DO NOT TAKE MORE THAN 4000mg in 1 day) Ibuprofen 400mg every 6 hours (Take with food as it can cause ulcers, GI upset) Example schedule: 8:00 AM (Tylenol 500-1000mg) 11:00 AM (Ibuprofen 400mg) 2:00 PM (Tylenol 500-1000mg) 5:00 PM (Ibuprofen 400mg) In addition to Tylenol and Motrin you may use over the counter creams such as Voltaren Cream or Lidocaine Cream (Lidoderm) as needed 4 times a day for symptomatic relief. Ice the area 20 minutes 4 times per day [facility] [address] [place] [address] [facility] [address] [place] [id number] The patient is informed of any results of their evaluation and diagnostic workup and all questions are answered. They are given discharge instructions and return precautions. The patient is stable for discharge. The patient states they understand and agree with the plan and that they will return if their symptoms get worse or if they have any new concerns. The following information is given to patients seen in the emergency department who are being discharged to home. This information is to outline your options for follow-up care. We provide all patients seen in our emergency department with a follow-up referral. The need for follow-up, as well as the timing and circumstances, are variable depending upon the specifics of your emergency department visit. If you don't have a primary care physician on staff, we will provide you with a referral. We always advise you to contact your personal physician following an emergency department visit to inform them of the circumstance of the visit and for follow-up with them and/or the need for any referrals to a consulting specialist. The emergency department will also refer you to a specialist when appropriate. This referral assures that you have the opportunity for follow-up care with a specialist. All of these measure are taken in an effort to provide you with optimal care, which includes your follow-up. Under all circumstances we always encourage you to contact your private physician who remains a resource for coordinating your care. When calling for follow-up care, please make the office aware that this follow-up is from your recent emergency room visit. If for any reason you are refused follow-up, please contact the [facility] Emergency Department at and asked to speak to the emergency department charge nurse. Sepsis Event Note (ED) - Evaluation Sepsis Screening Result: No Definite Risk
== END 2020-07-27 14:15 | disposition home or self-care (01) ==
LOC: MW.ED 11:48
DX: R09.1 Pleurisy (principal)
CPT/HCPCS: 71045; 80048; 83735; 84439; 84443; 84484; 85025; 93005; 96374; 99285; A9270; J1885; 99284